=== PATIENT | female | born 1930 | race Caucasian/White ===

== ENCOUNTER 2016-06-08 17:39 | Emergency (ER) | payer MEDICARE, BC ==
[2016-06-08 18:18] VITALS: BP 175/101
[2016-06-08] MEDS ORDERED: traMADol 50 MG Tab PO ONE (18:41)
[2016-06-08] MEDS ORDERED: Sodium Chloride 0.9% 10 ML Syringe FLUSH PRN (18:41)
--- NOTE | 2016-06-08 18:42 | EDM.PDOC ---
ED UPPER BACK/NECK PAIN/INJURY - General Chief Complaint: Neck Problem Stated Complaint: NECK PAIN Time Seen by Provider: 06/08/16 18:20 Source of Information: Reports: Patient History Limitations: Reports: No limitations - History of Present Illness INITIAL COMMENTS - FREE TEXT/NARRATIVE: 86 year old female presents for evaluation treatment of left sided shoulder and neck pain. She says the pain has been going on for about one week. She states that last week she was lifting some laundry. She still felt a small "twinge" in her left proximal arm but states this was not severe. She states that over the course of the following days the pain worsened. Pain is currently located in the shoulder radiates up into her left neck. She is also experiencing some pain in her left ear. She denies any chest pain, shortness of breath, diaphoresis, nausea, vomiting, muscle atrophy, numbness or tingling. He has been to the chiropractor and has been utilizing ice, heat and Tylenol without much symptom relief. patient did have an echocardiogram done on Thursday of this week. She has no history of MIs or cardiac arrhythmias. - Related Data Allergies/ADRs: Allergies Allergy/AdvReac Type Severity Reaction Status Date / Time No Known Allergies Allergy Verified 06/08/16 17:57 Home Meds: Home Meds . [Unable to Verify Home Med List] 06/08/16 [History] Past Medical History Cardiovascular History: Reports: High cholesterol, Hypertension Neurological History: Reports: MS Social & Family History - Tobacco Use Smoking Status *Q: Never Smoker ED ROS GENERAL - Review of Systems Review Of Systems: See Below Constitutional: Denies: diaphoresis HEENT: Reports: Ear pain (left) Respiratory: Denies: Shortness of Breath Cardiovascular: Denies: Chest pain GI/Abdominal: Denies: Abdominal pain, Nausea Musculoskeletal: Reports: neck pain (left sided), shoulder pain (left) ED EXAM, UPPER BACK/NECK PAIN - Physical Exam Exam: See Below Exam Limited By: No limitations General Appearance: alert, WD/WN, no apparent distress Ears Exam: normal external exam, normal canal, hearing grossly normal, normal TMs Nose Exam: normal inspection Throat/Mouth Exam: Normal inspection, Normal lips, Normal voice, No airway compromise Neck Exam: normal alignment, normal inspection, painful range of motion (able to flex, extend and rotate to the right without pain; reports pain with rotation to the left and decreased ROM with rotation to the left). 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 Left anterior fasicular block. 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 Reviewed by myself and Dr. Mejias. Course - Vital Signs Last Recorded V/S: Last Vital Signs Temp 36.4 C 06/08/16 17:57 Pulse 81 06/08/16 17:57 Resp 18 06/08/16 17:57 BP 175/101 H 06/08/16 17:57 Pulse Ox 96 06/08/16 17:57 - Orders/Labs/Meds Labs: Laboratory Tests 06/08/16 06/08/16 Range/Units 19:21 19:21 WBC 6.29 (3.98-10.04) K/mm3 RBC 5.08 (3.98-5.22) M/mm3 Hgb 15.3 (11.2-15.7) gm/L Hct 46.7 H (34.1-44.9) % MCV 91.9 (79.4-94.8) fl MCH 30.1 (25.6-32.2) pg MCHC 32.8 (32.2-35.5) g/dl RDW Std Deviation 48.1 H (36.4-46.3) fL Plt Count 150 L (182-369) K/mm3 MPV 12.1 (9.4-12.3) fl Neut % (Auto) 51.8 (34.0-71.1) % Lymph % (Auto) 35.6 (19.3-51.7) % [place] % (Auto) 9.9 (4.7-12.5) % Eos % (Auto) 2.1 (0.7-5.8) Baso % (Auto) 0.6 (0.1-1.2) % Neut # (Auto) 3.26 (1.56-6.13) K/mm3 Lymph # (Auto) 2.24 (1.18-3.74) K/mm3 [place] # (Auto) 0.62 H (0.24-0.36) K/mm3 Eos # (Auto) 0.13 (0.04-0.36) K/mm3 Baso # (Auto) 0.04 (0.01-0.08) K/mm3 Sodium 140 (136-145) mEq/L Potassium 4.2 (3.5-5.1) mEq/L Chloride 104 (98-107) mEq/L Carbon Dioxide 28 (21-32) mEq/L Anion Gap 12.2 (5-15) BUN 25 H (7-18) mg/dL Creatinine 1.0 (0.55-1.02) mg/dL Est Cr Clr Drug Dosing 36.34 mL/min Estimated GFR (MDRD) 53 (>60) mL/min BUN/Creatinine Ratio 25.0 H (14-18) Glucose 109 (83-115) mg/dL Calcium 8.9 (8.5-10.1) mg/dL Total Bilirubin 0.3 (0.2-1.0) mg/dL AST 38 H (15-37) U/L ALT 40 (14-59) U/L Alkaline Phosphatase 55 (46-116) U/L CK-MB (CK-2) 1.3 (0-3.6) ng/ml Troponin I < 0.017 (0.00-0.056) ng/mL Total Protein 7.4 (6.4-8.2) g/dl Albumin 4.0 (3.4-5.0) g/dl Globulin 3.4 gm/dL Albumin/Globulin Ratio 1.2 (1-2) Meds: Medications Discontinued Medications Generic Name Dose Route Start Last Admin Trade Name Freq PRN Reason Stop Dose Admin Sodium Chloride 10 ml 06/08/16 18:41 Saline Flush FLUSH ASDIRECTED PRN Keep Vein Open Tramadol HCl 50 mg 06/08/16 18:41 06/08/16 19:16 Ultram PO 06/08/16 18:42 50 mg ONETIME ONE Administration - Radiology Interpretation Free Text/Narrative:: chest xray shows no acute intrathoracic process. cervical spine xray shows severe degenerative changes. - Re-Assessments/Exams Free Text/Narrative Re-Assessment/Exam: 06/08/16 20:36 Labs returned. White blood cell count is 6.29, hemoglobin is 13.3 and platelets are 150. Troponin is within normal limits a less than 0.017. CK-MB is within normal limits at 1.3. Sodium is 140, potassium 4.2, chloride is 104. Anion gap is 2.2. Glucose is 109. Creatinine is 1.0. I reviewed the x-ray, lab results and EKG results with the patient. I do feel that her pain is likely coming from her neck. Will prescribe her some tramadol for pain. She tolerated this well in the ER and had good pain relief. follow up with her primary care provider. Discharge instructions as documented Departure - Departure Time of Disposition: 20:36 Disposition: Home, Self-Care 01 Condition: fair Clinical Impression: Cervical radiculopathy Instructions: Cervical Radiculopathy, [id number] Referrals: Marybeth Medina MD [Primary Care Provider] - Forms: ED Department Discharge Additional Instructions: Prescription for tramadol 50 mg tabs one tab every 4-6 hours #30 given from inst[facility]eds. tramadol as needed for severe pain. One tab every 4-6 hours as needed for severe pain. Do not drive or operative machinery within 12 hours of taking the tramadol. Tramadol can be habit-forming, I recommend you take as few of these as needed for pain. use ice or moist heat to the sore areas. Followup with primary care provider within one to 2 weeks. Please return to the ER should your symptoms change or worsen.
--- NOTE | 2016-06-09 07:44 | CR ---
Cervical spine: AP, lateral and odontoid views of the cervical spine were obtained. Comparison: No previous study. Mild scoliosis is seen. Bony structures are osteopenic. Diffuse degenerative change is seen within the uncovertebral joints. Mild posterior disc space narrowing is seen throughout the cervical spine. No abnormal subluxation is seen. Kyphosis is noted within the thoracic spine which causes accentuated lordosis within the cervical spine. Mild scattered endplate osteophytes are seen. Nothing acute is identified. Impression: 1. Mild posterior disc space narrowing throughout the cervical spine with mild diffuse degenerative apophyseal change. 2. Other findings as noted above. Nothing acute is identified. Diagnostic code #2
--- NOTE | 2016-06-09 07:44 | CR ---
Chest: Frontal view of the chest was obtained. Comparison: No previous chest imaging. Heart size is normal. Tortuous thoracic aorta is noted. Lungs are clear with no acute infiltrates. Slight density within the right upper lung believed to represent costochondral calcification within the first rib. Joint space narrowing and mild inferior spurring is seen within the right acromioclavicular joint. Mild scoliosis is noted within the spine with mild degenerative endplate osteophytes. Impression: 1. Incidental findings. Nothing acute is identified on frontal chest x-ray. Diagnostic code #2
== END 2016-06-08 20:50 | disposition home or self-care (01) ==
LOC: JD.ED 17:39
DX: M54.12 Radiculopathy, cervical region (principal); E78.00 Pure hypercholesterolemia, unspecified; I10 Essential (primary) hypertension
CPT/HCPCS: 36415; 71010; 72040; 80053; 82553; 84484; 85025; 93005; 99284; A9270; 99283

== ENCOUNTER 2016-07-02 07:19 | Inpatient (IN) | payer MEDICARE, BC ==
--- NOTE | 2016-07-02 08:43 | EDM.PDOC ---
ED HPI GENERAL MEDICAL PROBLEM - General Chief Complaint: Respiratory Problem Stated Complaint: CHEST CONGESTION Time Seen by Provider: 07/02/16 07:51 Source of Information: Reports: Patient, Family (Son), RN Notes Reviewed History Limitations: Reports: No Limitations - History of Present Illness INITIAL COMMENTS - FREE TEXT/NARRATIVE: The patient states that she believes that she has a bad cold. She complains of a cough, sore throat, rhinorrhea, and rib, abdominal, and chest discomfort whenever she coughs, since 06/27/2016. She states that she is wheelchair bound, but that she is able to transfer in and out of the bed, to the toilet, and perform her ADLs, but that since this illness began, she is too weak to do so. No history of fever, however, the patient is found to have a temperature of 102.1 here in the ED. The patient denies recent nausea, vomiting, constipation, diarrhea, or urinary symptoms. She admits that she is incontinent of urine. The patient's PCP is Dr. Marybeth Medina. Dr. Medina has not been notified of this illness. Chest Pain Score (Numeric/FACES): 8 - Related Data Allergies Allergy/AdvReac Type Severity Reaction Status Date / Time No Known Allergies Allergy Verified 06/08/16 17:57 Home Meds: Home Meds Alendronate Sodium [Alendronate] 70 mg PO WEEKLY 07/02/16 [History] Furosemide [Lasix] 20 mg PO DAILY 07/02/16 [History] Lisinopril 10 mg PO DAILY 07/02/16 [History] Simvastatin [Zocor] 20 mg PO DAILY 07/02/16 [History] Past Medical History Cardiovascular History: Reports: High Cholesterol, Hypertension Gastrointestinal History: Reports: PUD Genitourinary History: Reports: Urinary Incontinence Neurological History: Reports: MS - Past Surgical History HEENT Surgical History: Reports: Cataract Surgery GI Surgical History: Reports: Appendectomy Social & Family History - Tobacco Use Smoking Status *Q: Never Smoker - Alcohol Use Alcohol Use History: Yes Alcohol Use Frequency: Rarely - Recreational Drug Use Recreational Drug Use: No - Living Situation & Occupation Living situation: Reports: , with Family (Son) Occupation: Retired ED ROS GENERAL - Review of Systems Review Of Systems: See Below Constitutional: Reports: Weakness HEENT: Reports: No Symptoms, Rhinitis Respiratory: Reports: Cough Cardiovascular: Reports: No Symptoms Endocrine: Reports: No Symptoms GI/Abdominal: Reports: No Symptoms : Reports: No Symptoms Musculoskeletal: Reports: No Symptoms Skin: Reports: No Symptoms Neurological: Reports: No Symptoms Psychiatric: Reports: No Symptoms Hematologic/Lymphatic: Reports: No Symptoms Immunologic: Reports: No Symptoms ED EXAM, GENERAL - Physical Exam Exam: See Below Exam Limited By: No Limitations General Appearance: Alert, WD/WN, No Apparent Distress Eye Exam: Bilateral Eye: Normal Inspection Ears: Normal External Exam, Normal Canal, Hearing Grossly Normal, Normal TMs Ear Exam: Bilateral Ear: Auricle Normal, Canal Normal, TM normal Nose: Normal Inspection, Normal Mucosa, No Blood Throat/Mouth: Normal Inspection, Normal Lips, Normal Teeth, Normal Gums, Normal Oropharynx (Moist oral mucosa), Normal Voice, No Airway Compromise Head: Atraumatic, Normocephalic Neck: Normal Inspection, Supple, Non-Tender, Full Range of Motion. No: Lymphadenopathy (L), Lymphadenopathy (R) Respiratory/Chest: No Respiratory Distress, Lungs Clear, Normal Breath Sounds, No Accessory Muscle Use, Chest Non-Tender Cardiovascular: Normal Peripheral Pulses, Regular Rate, Rhythm, No Gallop, No JVD, No Murmur, No Rub Peripheral Pulses: 4+: Radial (L), Radial (R) GI/Abdominal: Normal Bowel Sounds, Soft, Non-Tender, No Organomegaly, No Distention, No Abnormal Bruit, No Mass (Female) Exam: Deferred Rectal (Female) Exam: Deferred Back Exam: Normal Inspection, Full Range of Motion, NT Extremities: Normal Inspection, Normal Range of Motion, No Pedal Edema, Normal Capillary Refill Neurological: Alert, Oriented, Normal Cognition, No Motor/Sensory Deficits Psychiatric: Normal Affect Skin Exam: Warm, Dry, Intact, Normal Color, No Rash Lymphatic: No Adenopathy EKG INTERPRETATION EKG Date: 07/02/16 Time: 08:21 Rhythm: NSR Rate (beats/min): 90 [place]: LAD-left axis deviation P-wave: present QRS: other (+ [id number]) ST-T: depressed (lateral leads, likely due to strain) QT: normal Comparison: no change (06/08/2016) Course - Vital Signs Last Recorded V/S: Last Vital Signs Temp 38.9 C H 07/02/16 07:42 Pulse 94 07/02/16 07:42 Resp 18 07/02/16 07:42 BP 161/81 H 07/02/16 07:42 Pulse Ox 92 L 07/02/16 07:42 - Orders/Labs/Meds Orders: Active Orders 24 hr Category Date Time Status EKG Documentation Completion [RC] STAT Care 07/02/16 08:06 Active Chest 1V Frontal [CR] Stat Exams 07/02/16 08:05 Taken CULTURE BLOOD [BC] Stat Lab 07/02/16 07:55 Received CULTURE BLOOD [BC] Stat Lab 07/02/16 08:56 Received CULTURE STREP A CONFIRMATION [RM] Stat Lab 07/02/16 08:02 Results STREP SCRN A RAPID W CULT CONF [RM] Stat Lab 07/02/16 08:02 Results Labs: Laboratory Tests 07/02/16 07/02/16 07/02/16 Range/Units 07:55 07:55 07:55 WBC 9.22 (3.98-10.04) K/mm3 RBC 4.96 (3.98-5.22) M/mm3 Hgb 14.8 (11.2-15.7) gm/L Hct 45.9 H (34.1-44.9) % MCV 92.5 (79.4-94.8) fl MCH 29.8 (25.6-32.2) pg MCHC 32.2 (32.2-35.5) g/dl RDW Std Deviation 48.9 H (36.4-46.3) fL Plt Count 125 L (182-369) K/mm3 MPV 12.2 (9.4-12.3) fl Neutrophils % (Manual) 87 H (40-60) % Band Neutrophils % 1 (0-10) % Lymphocytes % (Manual) 9 L (20-40) % Atypical Lymphs % 0 % Monocytes % (Manual) 2 (2-10) % Eosinophils % (Manual) 0 L (0.7-5.8) % Basophils % (Manual) 1 (0.1-1.2) Platelet Estimate Decreased RBC Morph Comment Normal D-Dimer, Quantitative 0.88 H (0.19-0.59) mg/L Puncture Site ABG pH (7.35-7.45) ABG pCO2 (35.0-45.0) mmHg ABG pO2 (80.0-100.0) mmHg ABG HCO3 (22.0-26.0) meq/L ABG O2 Saturation (96.0-97.0) % ABG Base Excess (-2-2.0) Mohsen Test A-a Gradient mmHg O2 Delivery Device FiO2 (21.00-100.00) % Sodium 140 (136-145) mEq/L Potassium 3.7 (3.5-5.1) mEq/L Chloride 103 (98-107) mEq/L Carbon Dioxide 27 (21-32) mEq/L Anion Gap 13.7 (5-15) BUN 12 (7-18) mg/dL Creatinine 0.9 (0.55-1.02) mg/dL Est Cr Clr Drug Dosing 38.75 mL/min Estimated GFR (MDRD) 59 (>60) mL/min BUN/Creatinine Ratio 13.3 L (14-18) Glucose 179 H (83-115) mg/dL Lactic Acid (0.4-2.0) mmol/L Calcium 8.8 (8.5-10.1) mg/dL Total Bilirubin 0.4 (0.2-1.0) mg/dL AST 28 (15-37) U/L ALT 29 (14-59) U/L Alkaline Phosphatase 61 (46-116) U/L Troponin I 0.022 (0.00-0.056) ng/mL C-Reactive Protein 3.4 H* (<1.0) mg/dL B-Natriuretic Peptide (0-100) pg/mL Total Protein 7.5 (6.4-8.2) g/dl Albumin 3.7 (3.4-5.0) g/dl Globulin 3.8 gm/dL Albumin/Globulin Ratio 1.0 (1-2) Lipase 75 (73-393) U/L TSH 3rd Generation 0.482 (0.358-3.74) uIU/mL Urine Color (Yellow) Urine Appearance (Clear) Urine pH (5.0-8.0) Ur Specific [place] (1.005-1.030) Urine Protein (Negative) Urine Glucose (UA) (Negative) Urine Ketones (Negative) Urine Occult Blood (Negative) Urine Nitrite (Negative) Urine Bilirubin (Negative) Urine Urobilinogen (0.2-1.0) Ur Leukocyte Esterase (Negative) Urine RBC (0-5) /hpf Urine WBC (0-5) /hpf Ur Epithelial Cells (0-5) /hpf Amorphous Sediment (NOT SEEN) /hpf Urine Bacteria (FEW) /hpf Urine Mucus (FEW) /hpf 07/02/16 07/02/16 07/02/16 Range/Units 07:55 08:06 08:15 WBC (3.98-10.04) K/mm3 RBC (3.98-5.22) M/mm3 Hgb (11.2-15.7) gm/L Hct (34.1-44.9) % MCV (79.4-94.8) fl MCH (25.6-32.2) pg MCHC (32.2-35.5) g/dl RDW Std Deviation (36.4-46.3) fL Plt Count (182-369) K/mm3 MPV (9.4-12.3) fl Neutrophils % (Manual) (40-60) % Band Neutrophils % (0-10) % Lymphocytes % (Manual) (20-40) % Atypical Lymphs % % Monocytes % (Manual) (2-10) % Eosinophils % (Manual) (0.7-5.8) % Basophils % (Manual) (0.1-1.2) Platelet Estimate RBC Morph Comment D-Dimer, Quantitative (0.19-0.59) mg/L Puncture Site Rt radial ABG pH 7.44 (7.35-7.45) ABG pCO2 36.8 (35.0-45.0) mmHg ABG pO2 52.0 L (80.0-100.0) mmHg ABG HCO3 24.6 (22.0-26.0) meq/L ABG O2 Saturation 88.8 L (96.0-97.0) % ABG Base Excess 1.2 (-2-2.0) Mohsen Test Positive A-a Gradient 36 mmHg O2 Delivery Device Room air FiO2 21.00 (21.00-100.00) % Sodium (136-145) mEq/L Potassium (3.5-5.1) mEq/L Chloride (98-107) mEq/L Carbon Dioxide (21-32) mEq/L Anion Gap (5-15) BUN (7-18) mg/dL Creatinine (0.55-1.02) mg/dL Est Cr Clr Drug Dosing mL/min Estimated GFR (MDRD) (>60) mL/min BUN/Creatinine Ratio (14-18) Glucose (83-115) mg/dL Lactic Acid (0.4-2.0) mmol/L Calcium (8.5-10.1) mg/dL Total Bilirubin (0.2-1.0) mg/dL AST (15-37) U/L ALT (14-59) U/L Alkaline Phosphatase (46-116) U/L Troponin I (0.00-0.056) ng/mL C-Reactive Protein (<1.0) mg/dL B-Natriuretic Peptide 164 H (0-100) pg/mL Total Protein (6.4-8.2) g/dl Albumin (3.4-5.0) g/dl Globulin gm/dL Albumin/Globulin Ratio (1-2) Lipase (73-393) U/L TSH 3rd Generation (0.358-3.74) uIU/mL Urine Color Yellow (Yellow) Urine Appearance Slt cloudy H (Clear) Urine pH 7.0 (5.0-8.0) Ur Specific [place] 1.020 (1.005-1.030) Urine Protein 1+ H (Negative) Urine Glucose (UA) Negative (Negative) Urine Ketones 2+ H (Negative) Urine Occult Blood Negative (Negative) Urine Nitrite Negative (Negative) Urine Bilirubin Negative (Negative) Urine Urobilinogen 0.2 (0.2-1.0) Ur Leukocyte Esterase Negative (Negative) Urine RBC 0-5 (0-5) /hpf Urine WBC 0-5 (0-5) /hpf Ur Epithelial Cells 0-5 (0-5) /hpf Amorphous Sediment Many H (NOT SEEN) /hpf Urine Bacteria Not seen (FEW) /hpf Urine Mucus Few (FEW) /hpf 07/02/16 Range/Units 08:56 WBC (3.98-10.04) K/mm3 RBC (3.98-5.22) M/mm3 Hgb (11.2-15.7) gm/L Hct (34.1-44.9) % MCV (79.4-94.8) fl MCH (25.6-32.2) pg MCHC (32.2-35.5) g/dl RDW Std Deviation (36.4-46.3) fL Plt Count (182-369) K/mm3 MPV (9.4-12.3) fl Neutrophils % (Manual) (40-60) % Band Neutrophils % (0-10) % Lymphocytes % (Manual) (20-40) % Atypical Lymphs % % Monocytes % (Manual) (2-10) % Eosinophils % (Manual) (0.7-5.8) % Basophils % (Manual) (0.1-1.2) Platelet Estimate RBC Morph Comment D-Dimer, Quantitative (0.19-0.59) mg/L Puncture Site ABG pH (7.35-7.45) ABG pCO2 (35.0-45.0) mmHg ABG pO2 (80.0-100.0) mmHg ABG HCO3 (22.0-26.0) meq/L ABG O2 Saturation (96.0-97.0) % ABG Base Excess (-2-2.0) Mohsen Test A-a Gradient mmHg O2 Delivery Device FiO2 (21.00-100.00) % Sodium (136-145) mEq/L Potassium (3.5-5.1) mEq/L Chloride (98-107) mEq/L Carbon Dioxide (21-32) mEq/L Anion Gap (5-15) BUN (7-18) mg/dL Creatinine (0.55-1.02) mg/dL Est Cr Clr Drug Dosing mL/min Estimated GFR (MDRD) (>60) mL/min BUN/Creatinine Ratio (14-18) Glucose (83-115) mg/dL Lactic Acid 1.0 (0.4-2.0) mmol/L Calcium (8.5-10.1) mg/dL Total Bilirubin (0.2-1.0) mg/dL AST (15-37) U/L ALT (14-59) U/L Alkaline Phosphatase (46-116) U/L Troponin I (0.00-0.056) ng/mL C-Reactive Protein (<1.0) mg/dL B-Natriuretic Peptide (0-100) pg/mL Total Protein (6.4-8.2) g/dl Albumin (3.4-5.0) g/dl Globulin gm/dL Albumin/Globulin Ratio (1-2) Lipase (73-393) U/L TSH 3rd Generation (0.358-3.74) uIU/mL Urine Color (Yellow) Urine Appearance (Clear) Urine pH (5.0-8.0) Ur Specific [place] (1.005-1.030) Urine Protein (Negative) Urine Glucose (UA) (Negative) Urine Ketones (Negative) Urine Occult Blood (Negative) Urine Nitrite (Negative) Urine Bilirubin (Negative) Urine Urobilinogen (0.2-1.0) Ur Leukocyte Esterase (Negative) Urine RBC (0-5) /hpf Urine WBC (0-5) /hpf Ur Epithelial Cells (0-5) /hpf Amorphous Sediment (NOT SEEN) /hpf Urine Bacteria (FEW) /hpf Urine Mucus (FEW) /hpf - Radiology Interpretation Free Text/Narrative:: Portable chest radiograph does not appear to have any acute findings. Cardiac silhouette is within normal limits. No pulmonary vascular congestion. No pleural effusions. No focal infiltrate. No pneumothorax. There is hyperinflation and bilateral diaphragmatic flattening, consistent with COPD. Tortuous aorta noted. Formal read per the Radiologist pending. - Re-Assessments/Exams Free Text/Narrative Re-Assessment/Exam: 07/02/16 09:45 Test results discussed with the patient and her sons. Today's workup is grossly unremarkable. She does not have an elevated WBC count. Her electrolytes and renal function are normal. She does not have a UTI. There is no sign of pneumonia or CHF. She is oxygenating adequately. Her CRP is mildly elevated at 3.4, consistent with a viral illness. Her d-dimer is mildly elevated at 0.88, normal for a person of her age. Our only finding is of a fever of 102.1. The patient states that she uses a wheelchair at home, but that she is ordinarily strong enough to get in and out of bed, go to the bathroom, and perform her ADLs, but that she is currently too weak to do so. Under the circumstances, I don't believe we can safely send the patient home. 07/02/16 09:[address] Benoit at 09:47. He agrees to admit the patient. Departure - Departure Time of Disposition: 09:50 Disposition: Admitted As Inpatient 66 Condition: fair Clinical Impression: Febrile illness, Generalized weakness - Discharge Information - My Orders Last 24 Hours: My Active Orders 07/02/16 07:55 CULTURE BLOOD [BC] Stat 07/02/16 08:02 CULTURE STREP A CONFIRMATION [RM] Stat STREP SCRN A RAPID W CULT CONF [RM] Stat 07/02/16 08:05 Chest 1V Frontal [CR] Stat 07/02/16 08:06 EKG Documentation Completion [RC] STAT 07/02/16 08:56 CULTURE BLOOD [BC] Stat - Assessment/Plan Last 24 Hours: My Active Orders 07/02/16 07:55 CULTURE BLOOD [BC] Stat 07/02/16 08:02 CULTURE STREP A CONFIRMATION [RM] Stat STREP SCRN A RAPID W CULT CONF [RM] Stat 07/02/16 08:05 Chest 1V Frontal [CR] Stat 07/02/16 08:06 EKG Documentation Completion [RC] STAT 07/02/16 08:56 CULTURE BLOOD [BC] Stat
--- NOTE | 2016-07-02 11:30 | CR ---
Chest: Frontal view of the chest was obtained. Comparison: Previous chest x-ray of 06/08/16. Heart size is normal. Tortuous thoracic aorta is seen. Lungs are clear. Mild scoliosis and degenerative spurring is seen within the spine. Impression: 1. Incidental findings which appear stable from prior chest x-ray. 2. Nothing acute is identified on frontal chest x-ray. Diagnostic code #2
[2016-07-02] MEDS ORDERED: Promethazine 12.5 MG in Sodium Chloride 0.9% 50 ML IV PRN (11:51)
[2016-07-02] MEDS ORDERED: Acetaminophen 325 MG Tab PO PRN (11:51)
[2016-07-02] MEDS ORDERED: HYDROmorphone 0.5 MG/0.5 ML Syringe IVPUSH PRN (11:51)
[2016-07-02] MEDS ORDERED: Acetaminophen/HYDROcodone 325-5 MG Tab PO PRN (11:51)
[2016-07-02] MEDS ORDERED: Ondansetron 4 MG/2 ML SDV IV PRN (11:51)
[2016-07-02] MEDS ORDERED: LORazepam 2 MG/ML MDV IV PRN (11:51)
--- NOTE | 2016-07-02 11:51 | PCM.HP ---
H&P History of Present Illness - General Date of Service: 07/02/16 Admit Problem/Dx: Generalized Weakness and Febrile Illness Source of Information: Patient, Old Records, Provider, RN Notes Reviewed History Limitations: Reports: Physical Impairment - History of Present Illness Initial Comments - Free Text/Narative: This sis an 86 yo elderly white female with past medical hx/o HTN, HLD, PUD, Urinary Incontinence and MS (stable for many years) who comes in with complaints of generalized weakness associated with productive cough, fever and chills that started last Thursday. She reports reduced appetite and generalized muscle and joint aches and pain. This morning she had difficulty getting out of bed according to her son. On presentation to ED, she was found to have a temperature of 38.9 C. Her initial ED work up shows, a CBC remarkable for Hct 45.9, Platelet 125 and Neutrophils of 87%. Her D-Dimer is 0.88. Her chemistry is remarkable for BS 179 and BNP 164. Her LA is 1, Troponin x 1 is negative, Lipase is 75 and TSH is 0.482. Her UA is negative for UTI. Her CRX shows no acute abnormal findings. Her EKG shows NSR, Q wave in V1-V3 and ST depression in I, aVL. Her ABG shows PO2 of 52 with 88.8% O2 sat on RA. Patient being admitted for Generalized Weakness, Febrile Illness, Bronchitis and Hypoxemia. She is DNR/DNI. Chest Pain Score (Numeric/FACES): 8 - Related Data Allergies/Adverse Reactions: Allergies Allergy/AdvReac Type Severity Reaction Status Date / Time No Known Allergies Allergy Verified 06/08/16 17:57 Home Medications: Home Meds Alendronate Sodium [Alendronate] 70 mg PO WEEKLY 07/02/16 [History] Furosemide [Lasix] 20 mg PO DAILY 07/02/16 [History] Lisinopril 10 mg PO DAILY 07/02/16 [History] Simvastatin [Zocor] 20 mg PO DAILY 07/02/16 [History] Past Medical History Cardiovascular History: Reports: High Cholesterol, Hypertension Gastrointestinal History: Reports: PUD Genitourinary History: Reports: Urinary Incontinence Musculoskeletal History: Reports: Other (See Below) Other Musculoskeletal History: MS Neurological History: Reports: MS - Infectious Disease History Infectious Disease History: Reports: None - Past Surgical History HEENT Surgical History: Reports: Cataract Surgery GI Surgical History: Reports: Appendectomy Social & Family History - Family History Family Medical History: Noncontributory - Tobacco Use Smoking Status *Q: Never Smoker Used Tobacco, but Quit: Yes Month Tobacco Last Used: 500 Second Hand Smoke Exposure: No - Caffeine Use Caffeine Use: Reports: Tea Caffeine Use Comment: 6 oz of tea at noon - Recreational Drug Use Recreational Drug Use: No - Living Situation & Occupation Living situation: Reports: , with Family (Son) Occupation: Retired H&P Review of Systems - Review of Systems: Review Of Systems: See Below General: Reports: Fever, Chills, Malaise, Weakness, Decreased Appetite HEENT: Reports: No Symptoms Pulmonary: Reports: Cough, Sputum. Denies: Shortness of Breath Cardiovascular: Denies: Chest Pain, Palpitations, Dyspnea on Exertion, Edema, Lightheadedness Gastrointestinal: Reports: Decreased Appetite. Denies: Abdominal Pain, Nausea, Vomiting Genitourinary: Reports: No Symptoms Musculoskeletal: Reports: No Symptoms Skin: Denies: Pruritis, Rash, Erythema Psychiatric: Denies: Confusion, Depression, Anxiety, Agitation, Hallucinations Neurological: Reports: Difficulty Walking, Weakness, Gait Disturbance. Denies: Confusion Hematologic/Lymphatic: Reports: No Symptoms Immunologic: Reports: No Symptoms Exam - Exam Exam: See Below - Vital Signs Vital Signs: Last Vital Signs Temp 38.9 C H 07/02/16 07:42 Pulse 94 07/02/16 07:42 Resp 18 07/02/16 07:42 BP 161/81 H 07/02/16 07:42 Pulse Ox 92 L 07/02/16 07:42 Weight: 74.48 kg - Exam General: Alert, Oriented, Cooperative. No: Mild Distress HEENT: Conjunctiva Clear, EACs Clear, EOMI, Hearing Intact, Mucosa Moist & [place] , Nares Patent, Normal Nasal Septum, Posterior Pharynx Clear, Pupils Equal, Pupils Reactive Neck: Supple, Trachea Midline, +2 Carotid Pulse wo Bruit Lungs: Clear to Auscultation, Normal Respiratory Effort, Decreased Breath Sounds Cardiovascular: Regular Rate, Regular Rhythm Abdomen: Normal Bowel Sounds, Soft, Pelvis Stable. No: Organomegaly, Tenderness (Female) Exam: Deferred Rectal (Female) Exam: Deferred Back Exam: Normal Inspection, Decreased Range of Motion Extremities: Normal Inspection Skin: Warm, Dry, Intact Neuro Extensive - Mental Status: Oriented x3, Normal Cognition, Memory Intact Neuro Extensive - Motor, Sensory, Reflexes: CN II-XII Intact (She has baseline paresthesia. Exam was limited.), Abnormal Gait, Other (She was too weak . She is unable to lift either leg.) Psychiatric: Alert, Normal Affect, Normal Mood - Patient Data Result Diagrams: 07/02/16 07:55 07/02/16 07:55 *Q Meaningful Use (ADM) - VTE *Q VTE Criteria *Q: - Stroke *Q Stroke Criteria *Q: - AMI *Q AMI Criteria *Q: Problem List Initiated/Reviewed/Updated: Yes Assessment/Plan Comment:: Assessment/Plan: Acute: Febrile Illness - Likely 2/2 Bronchitis (Possible Viral) - CRP 3.4 - Supportive Care - PRN Tylenol for Fever Acute Bronchitis - Productive Cough - She does not spit out her phlegm or sputum - She swallows it - Decongestant/Expectorant - IS/FV as directed - Sputum Cx Hypoxemia - 88% on RA presentation to ED - Supplemental O2 - Likely 2/2 Bronchitis - Expect to get better with improving cough Generalized Weakness - 2/2 to Above - TSH is normal; pending FT4 - Vit D level Chronic: HTN HLD PUD Urinary Incontinence MS Plan: Admit to the floor Routine AM Labs Resume Home Meds MVI and Thiamine PT/OT/RT consult SW/CM for d/c planning Code status: DNR/DNI Possible SNF/Rehab Placement due to generalized weakness in setting of underlying MS. She is also for the most part wheel chair bound.
[2016-07-02] MEDS ORDERED: Docusate Sodium 100 MG Cap PO PRN (11:52)
[2016-07-02] MEDS ORDERED: Bisacodyl 5 MG Tab PO PRN (11:52)
[2016-07-02] MEDS ORDERED: Albuterol 0.083% 2.5 MG/3 ML Neb Soln NEB PRN (11:52)
[2016-07-02] MEDS ORDERED: Polyethylene Glycol 3350 Powder 17 GM Packet PO PRN (11:52)
[2016-07-02] MEDS ORDERED: Sodium Chloride 0.9% 1,000 ML IV SCH (12:00)
[2016-07-02] MEDS ORDERED: Metoprolol Tartrate 5 MG/5 ML SDV IVPUSH PRN (12:27)
[2016-07-02] MEDS: Furosemide 20 MG Tab PO SCH ×2 (13:27→13:36)
[2016-07-02] MEDS: Lisinopril 10 MG Tab PO SCH ×2 (13:27→13:35)
[2016-07-02] MEDS: Simvastatin 20 MG Tab PO SCH ×2 (13:28→13:36)
[2016-07-02] MEDS: Bumetanide 1 MG/4 ML MDV IVPUSH ONE ×2 (13:28→13:36)
[2016-07-02] MEDS ORDERED: Acetaminophen 325 MG Tab PO ONE (20:42)
[2016-07-02] MEDS ORDERED: Temazepam 7.5 MG Cap PO PRN (21:00)
[2016-07-02] MEDS: Multivitamins,Therapeutic Tab PO SCH (21:05)
[2016-07-02] MEDS: Thiamine 100 MG Tab PO SCH (21:05)
[2016-07-02] MEDS: guaiFENesin 600 MG Tab.ER PO SCH (21:06)
[2016-07-03] MEDS: Azithromycin 500 MG in Sodium Chloride 0.9% 250 ML IV SCH (08:17)
[2016-07-03] MEDS: guaiFENesin 600 MG Tab.ER PO SCH ×2 (08:18→20:21)
[2016-07-03] MEDS: Potassium Chloride 20 MEQ Tab.ER PO SCH ×2 (08:18→12:06)
[2016-07-03] MEDS: Lisinopril 10 MG Tab PO SCH (08:19)
[2016-07-03] MEDS: Furosemide 20 MG Tab PO SCH (08:19)
[2016-07-03] MEDS: Simvastatin 20 MG Tab PO SCH (08:19)
[2016-07-03] MEDS ORDERED: Magnesium Oxide 400 MG Tab PO ONE (08:30)
[2016-07-03] MEDS: Albuterol/Ipratropium 3.0-0.5 MG/3 ML Neb Soln NEB SCH ×3 (08:44→20:05)
--- NOTE | 2016-07-03 09:11 | PCM.PN ---
- General Info Date of Service: 07/03/16 Admission Dx/Problem (Free Text): Fever, weakness, cough, SOB Gertrude Gallegos is a pleasant 86yo female seen this morning. She reports slept well. Continues to cough, unable to bring anything up. Denies feeling SOB now, no CP. She does feel wheezing. She was febrile overnight. Appetite is returning, was able to eat a cheeseburger last night and "tasted so good", otherwise really hadn't eaten much at all for 2-3 days. States symptoms of coughing started 3 days ago. Functional Status: Reports: pain controlled, tolerating diet, ambulating, urinating. Denies: new symptoms - Review of Systems General: Reports: Fever, Weakness, Fatigue, Malaise, Appetite (improving). Denies: Chills HEENT: Reports: no symptoms Pulmonary: Reports: cough, wheezing. Denies: shortness of breath, pleuritic chest pain Cardiovascular: Reports: Edema (chronic LE edema). Denies: Chest Pain, Palpitations, Dyspnea on Exertion, Lightheadedness Gastrointestinal: Reports: No symptoms. Denies: Abdominal pain, Nausea Genitourinary: Reports: no symptoms Musculoskeletal: Reports: other (chronic weakness d/t MS) Skin: Reports: no symptoms Neurological: Reports: No Symptoms Psychiatric: Reports: no symptoms - Patient Data Vitals - most recent: Last Vital Signs Temp 97.5 F 07/03/16 02:02 Pulse 83 07/03/16 02:02 Resp 17 07/03/16 02:02 BP 119/71 07/03/16 08:19 Pulse Ox 93 L 07/03/16 08:44 Weight - most recent: 165 lb I&O - last 24 hours: Intake & Output 07/02/16 07/03/16 07/03/16 22:59 06:59 14:59 Intake Total 465 554 Balance 465 554 Lab Results last 24 hrs: Laboratory Results - last 24 hr 07/03/16 07/03/16 07/03/16 Range/Units 05:42 05:42 05:42 WBC 6.66 (3.98-10.04) K/mm3 RBC 4.65 (3.98-5.22) M/mm3 Hgb 14.1 (11.2-15.7) gm/L Hct 43.1 (34.1-44.9) % MCV 92.7 (79.4-94.8) fl MCH 30.3 (25.6-32.2) pg MCHC 32.7 (32.2-35.5) g/dl RDW Std Deviation 49.7 H (36.4-46.3) fL Plt Count 116 L (182-369) K/mm3 MPV 12.4 H (9.4-12.3) fl Neut % (Auto) 60.1 (34.0-71.1) % Lymph % (Auto) 25.7 (19.3-51.7) % [place] % (Auto) 13.2 H (4.7-12.5) % Eos % (Auto) 0.2 L (0.7-5.8) Baso % (Auto) 0.5 (0.1-1.2) % Neut # (Auto) 4.01 (1.56-6.13) K/mm3 Lymph # (Auto) 1.71 (1.18-3.74) K/mm3 [place] # (Auto) 0.88 H (0.24-0.36) K/mm3 Eos # (Auto) 0.01 L (0.04-0.36) K/mm3 Baso # (Auto) 0.03 (0.01-0.08) K/mm3 Sodium 141 (136-145) mEq/L Potassium 3.4 L (3.5-5.1) mEq/L Chloride 106 (98-107) mEq/L Carbon Dioxide 28 (21-32) mEq/L Anion Gap 10.4 (5-15) BUN 16 (7-18) mg/dL Creatinine 1.0 (0.55-1.02) mg/dL Est Cr Clr Drug Dosing 34.87 mL/min Estimated GFR (MDRD) 53 (>60) mL/min BUN/Creatinine Ratio 16.0 (14-18) Glucose 124 H (83-115) mg/dL Calcium 7.9 L (8.5-10.1) mg/dL Magnesium 1.8 (1.8-2.4) mg/dl C-Reactive Protein 11.8 H* (<1.0) mg/dL Free T4 1.11 (0.76-1.46) ng/dL Mycoplasma pneumon IgM Negative (NEGATIVE) Med Orders - Current: Current Medications Acetaminophen (Tylenol) 650 mg PO Q4H PRN PRN Reason: Pain (Mild 1-3)/fever Last Admin: 07/02/16 17:43 Dose: 650 mg Hydrocodone Bitart/Acetaminophen ([place] 325-5 Mg) 1 tab PO Q4H PRN PRN Reason: Pain (moderate 4-6) Albuterol (Proventil Neb Soln) 2.5 mg NEB Q2H PRN PRN Reason: Shortness Of Breath/wheezing Albuterol/Ipratropium (Duoneb 3.0-0.5 Mg/3 Ml) 3 ml NEB Q6HRRT [facility] Last Admin: 07/03/16 08:44 Dose: 3 ml Bisacodyl (Dulcolax) 5 mg PO DAILY PRN PRN Reason: Constipation Docusate Sodium (Colace) 100 mg PO BID PRN PRN Reason: Constipation Furosemide (Lasix) 20 mg PO DAILY [facility] Last Admin: 07/03/16 08:19 Dose: 20 mg Guaifenesin (Mucinex) 1,200 mg PO BID [facility] Last Admin: 07/03/16 08:18 Dose: 1,200 mg Hydralazine HCl (Apresoline) 10 mg IVPUSH Q4H PRN PRN Reason: Hypertension Hydromorphone HCl (Dilaudid) 0.25 mg IVPUSH Q2H PRN PRN Reason: Pain (severe 7-10) Promethazine HCl 12.5 mg/ (Sodium Chloride) 50.5 mls @ 100 mls/hr IV Q6H PRN PRN Reason: Nausea/Vomiting Sodium Chloride (Normal Saline) 1,000 mls @ 75 mls/hr IV ASDIRECTED [facility] Last Admin: 07/02/16 13:28 Dose: 75 mls/hr Azithromycin 500 mg/ Sodium (Chloride) 250 mls @ 250 mls/hr IV Q24H [facility] Last Admin: 07/03/16 08:17 Dose: 250 mls/hr Lisinopril (Prinivil) 10 mg PO DAILY [facility] Last Admin: 07/03/16 08:19 Dose: 10 mg Lorazepam (Ativan) 0.25 mg IV Q6H PRN PRN Reason: Anxiety Magnesium Sulfate (Pharmacy To Dose - Magnesium Replacement) 0 dose .XX ASDIRECTED PRN PRN Reason: RX TO MONITOR MAG LEVELS Metoprolol Tartrate (Lopressor) 5 mg IVPUSH Q4H PRN PRN Reason: Tachycardia Multivitamins (Thera) 1 each PO BEDTIME [facility] Last Admin: 07/02/16 21:05 Dose: 1 each Ondansetron HCl (Zofran) 4 mg IV Q6H PRN PRN Reason: Nausea/Vomiting Alendronate Sodium (70 Mg) 0 each PO Mo@0600 [facility] Polyethylene Glycol (Miralax) 17 gm PO DAILY PRN PRN Reason: Constipation Potassium Chloride (Pharmacy To Dose - Potassium Replacement) 0 dose .XX ASDIRECTED PRN PRN Reason: RX TO MONITOR K LEVELS Potassium Chloride (Klor-Con M20) 40 meq PO Q4H [facility] Stop: 07/03/16 12:31 Last Admin: 07/03/16 08:18 Dose: 40 meq Senna/Docusate Sodium (Senna Plus) 1 tab PO BID PRN PRN Reason: Constipation Simvastatin (Zocor) 20 mg PO DAILY [facility] Last Admin: 07/03/16 08:19 Dose: 20 mg Temazepam (Restoril) 7.5 mg PO BEDTIME PRN PRN Reason: Sleep Thiamine HCl (Vitamin B-1) 100 mg PO BEDTIME [facility] Last Admin: 07/02/16 21:05 Dose: 100 mg Discontinued Medications Acetaminophen (Tylenol) 650 mg PO NOW ONE Stop: 07/02/16 20:43 Last Admin: 07/02/16 21:06 Dose: 650 mg Bumetanide (Bumex) 1 mg IVPUSH ONETIME ONE Stop: 07/02/16 12:30 Last Admin: 07/02/16 13:36 Dose: 1 mg Magnesium Oxide (Magnesium Oxide) 400 mg PO ONETIME ONE Stop: 07/03/16 08:31 Last Admin: 07/03/16 08:19 Dose: 400 mg - Exam Quality Assessment: DVT prophylaxis General: alert, oriented, cooperative, no acute distress HEENT: Pupils equal, Pupils reactive, EOMI, Mucous membr. moist/pink Neck: supple Lungs: Normal respiratory effort, Decreased breath sounds (bases), Rhonchi (mid to bases; worse to rt side), Wheezing (expiratory) Cardiovascular: Regular Rate, Regular Rhythm, No Murmurs Abdomen: bowel sounds present, soft, no tenderness, no distension (Female) Exam: Deferred Back Exam: Normal Inspection Extremities: edema (1+ bilat; teds on bilat) Peripheral Pulses: 1+: Dorsalis Pedis (L), Dorsalis Pedis (R) Skin: warm, dry Neurological: no new focal deficit Psy/Mental Status: alert, normal affect, normal mood - Problem List & Annotations (1) Acute bronchitis SNOMED Code(s): 43270358 Code(s): J20.9 - ACUTE BRONCHITIS, UNSPECIFIED Status: Acute Priority: High Current Visit: Yes Qualifiers: Bronchitis organism: unspecified organism Qualified Code(s): J20.9 - Acute bronchitis, unspecified (2) Febrile illness SNOMED Code(s): 862881860 Code(s): R50.9 - FEVER, UNSPECIFIED Status: Acute Current Visit: Yes (3) Generalized weakness SNOMED Code(s): 84442847 Code(s): R53.1 - WEAKNESS Status: Acute Priority: High Current Visit: Yes (4) Multiple sclerosis SNOMED Code(s): 50758507 Code(s): G35 - MULTIPLE SCLEROSIS Status: Chronic Priority: Medium Current Visit: No - Problem List Review Problem List Initiated/Reviewed/Updated: Yes - My Orders Last 24 Hours: My Active Orders 07/03/16 07:03 RT Aerosol Therapy [RC] ASDIRECTED 07/03/16 07:30 Azithromycin [Zithromax] 500 mg Sodium Chloride 0.9% [Normal Saline] 250 ml IV Q24H 07/03/16 08:30 RESPIRATORY PANEL BY PCR [MREF] Routine STREP PNEUMONIAE ANTIGEN [MREF] Routine 07/03/16 09:00 Albuterol/Ipratropium [DuoNeb 3.0-0.5 MG/3 ML] 3 ml NEB Q6HRRT - Plan Plan:: Assessment/Plan: Acute: Febrile Illness-- Acute bronchitis - Likely 2/2 Bronchitis (Possible Viral)--coughing, fever, SOB x 2-3 days - CRP 3.4--> up to 11 today - Mycoplasma, S. Pneumo and Resp viral panel ordered this morning, sputum cx - Zithromax for inflammatory coverage - RT for IS/Flutter valve and nebs - Mucinex BID - PRN Tylenol for Fever Hypoxemia - 88% on RA presentation to ED - Supplemental O2 - Likely 2/2 Bronchitis - Expect to get better with improving cough Generalized Weakness - 2/2 to Above - TSH and FTR normal - Vit D level WNL - Chronic MS with acute resp illness contributory Chronic: HTN- stable; cont home meds HLD PUD- GI prophylax Urinary Incontinence MS Plan: Admit to the floor Routine AM Labs Resume Home Meds MVI and Thiamine DVT/GI prophylax PT/OT/RT consult SW/CM for d/c planning Code status: DNR/DNI Possible SNF/Rehab Placement due to generalized weakness in setting of underlying MS. She is also for the most part wheel chair bound.
[2016-07-03] MEDS ORDERED: Pneumococcal 13-Valent Conjugate Vaccine 0.5 ML Syringe IM ONE (09:18)
[2016-07-03] MEDS ORDERED: Diphtheria,Pertussis(Acell),Tetanus Vaccine 0.5 ML SDV inactive IM ONE (09:18)
[2016-07-03] MEDS ORDERED: Sodium Chloride 0.9% 10 ML Syringe FLUSH PRN (17:54)
[2016-07-03] MEDS: Multivitamins,Therapeutic Tab PO SCH (20:21)
[2016-07-03] MEDS: Thiamine 100 MG Tab PO SCH (20:21)
[2016-07-04] MEDS: Albuterol/Ipratropium 3.0-0.5 MG/3 ML Neb Soln NEB SCH ×4 (03:24→20:32)
[2016-07-04] MEDS ORDERED: Magnesium Oxide 400 MG Tab PO ONE (09:00)
[2016-07-04] MEDS: Lisinopril 10 MG Tab PO SCH (09:39)
[2016-07-04] MEDS: guaiFENesin 600 MG Tab.ER PO SCH ×2 (09:39→22:04)
[2016-07-04] MEDS: Simvastatin 20 MG Tab PO SCH (09:39)
[2016-07-04] MEDS: Furosemide 20 MG Tab PO SCH (09:40)
[2016-07-04] MEDS: Azithromycin 500 MG in Sodium Chloride 0.9% 250 ML IV SCH (09:40)
[2016-07-04] MEDS: hydrALAZINE 20 MG/ML SDV IVPUSH PRN (09:43)
--- NOTE | 2016-07-04 11:22 | PCM.PN ---
- General Info Date of Service: 07/04/16 Admission Dx/Problem (Free Text): Fever, weakness, cough, SOB M Subjective Update: Follow Up Functional Status: Reports: pain controlled, tolerating diet, urinating. Denies : ambulating, new symptoms - Review of Systems General: Reports: Weakness. Denies: Fever, Fatigue, Malaise, Chills HEENT: Reports: no symptoms Pulmonary: Reports: shortness of breath, cough, sputum Cardiovascular: Denies: Chest Pain, Palpitations, Dyspnea on Exertion Gastrointestinal: Denies: Abdominal pain, Nausea, Vomiting Genitourinary: Reports: no symptoms Musculoskeletal: Reports: no symptoms Neurological: Reports: Difficulty Walking, Weakness, Gait Disturbance. Denies: Confusion Psychiatric: Denies: confusion, mood lability, agitation, hallucinations Systems Review Comment:: No overnight issues. She slept pretty good. She continues to cough but has difficulty with expectoration. - Patient Data Vitals - most recent: Last Vital Signs Temp 37.3 C 07/04/16 09:19 Pulse 78 07/04/16 09:19 Resp 20 07/04/16 09:19 BP 153/85 H 07/04/16 09:39 Pulse Ox 95 07/04/16 09:19 Weight - most recent: 75.16 kg I&O - last 24 hours: Intake & Output 07/03/16 07/04/16 07/04/16 22:59 06:59 14:59 Intake Total 2235 600 0 Output Total 400 400 Balance 1835 200 0 Lab Results last 24 hrs: Laboratory Results - last 24 hr 07/04/16 07/04/16 Range/Units 05:50 05:50 WBC 5.18 (3.98-10.04) K/mm3 RBC 4.34 (3.98-5.22) M/mm3 Hgb 13.0 (11.2-15.7) gm/L Hct 40.2 (34.1-44.9) % MCV 92.6 (79.4-94.8) fl MCH 30.0 (25.6-32.2) pg MCHC 32.3 (32.2-35.5) g/dl RDW Std Deviation 49.6 H (36.4-46.3) fL Plt Count 114 L (182-369) K/mm3 MPV 12.0 (9.4-12.3) fl Neut % (Auto) 43.6 (34.0-71.1) % Lymph % (Auto) 43.8 (19.3-51.7) % [place] % (Auto) 11.0 (4.7-12.5) % Eos % (Auto) 1.0 (0.7-5.8) Baso % (Auto) 0.4 (0.1-1.2) % Neut # (Auto) 2.26 (1.56-6.13) K/mm3 Lymph # (Auto) 2.27 (1.18-3.74) K/mm3 [place] # (Auto) 0.57 H (0.24-0.36) K/mm3 Eos # (Auto) 0.05 (0.04-0.36) K/mm3 Baso # (Auto) 0.02 (0.01-0.08) K/mm3 Manual Slide Review Normal smear Sodium 142 (136-145) mEq/L Potassium 4.1 (3.5-5.1) mEq/L Chloride 109 H (98-107) mEq/L Carbon Dioxide 25 (21-32) mEq/L Anion Gap 12.1 (5-15) BUN 17 (7-18) mg/dL Creatinine 0.7 (0.55-1.02) mg/dL Est Cr Clr Drug Dosing 49.82 mL/min Estimated GFR (MDRD) > 60 (>60) mL/min BUN/Creatinine Ratio 24.3 H (14-18) Glucose 115 (83-115) mg/dL Calcium 7.8 L (8.5-10.1) mg/dL Magnesium 1.8 (1.8-2.4) mg/dl C-Reactive Protein 6.2 H* (<1.0) mg/dL [place] Results last 24 hrs: Microbiology 07/03/16 08:30 Streptococcus pneumoniae Antigen (M - Final Urine 07/03/16 08:30 Respiratory Virus Panel (PCR) (DEXTER) - Final Nasopharyngeal Swab - Nare, Unspecified Med Orders - Current: Current Medications Acetaminophen (Tylenol) 650 mg PO Q4H PRN PRN Reason: Pain (Mild 1-3)/fever Last Admin: 07/02/16 17:43 Dose: 650 mg Hydrocodone Bitart/Acetaminophen ([place] 325-5 Mg) 1 tab PO Q4H PRN PRN Reason: Pain (moderate 4-6) Albuterol (Proventil Neb Soln) 2.5 mg NEB Q2H PRN PRN Reason: Shortness Of Breath/wheezing Albuterol/Ipratropium (Duoneb 3.0-0.5 Mg/3 Ml) 3 ml NEB Q6HRRT [facility] Last Admin: 07/04/16 09:51 Dose: 3 ml Bisacodyl (Dulcolax) 5 mg PO DAILY PRN PRN Reason: Constipation Docusate Sodium (Colace) 100 mg PO BID PRN PRN Reason: Constipation Furosemide (Lasix) 20 mg PO DAILY [facility] Last Admin: 07/04/16 09:40 Dose: 20 mg Guaifenesin (Mucinex) 1,200 mg PO BID [facility] Last Admin: 07/04/16 09:39 Dose: 1,200 mg Hydralazine HCl (Apresoline) 10 mg IVPUSH Q4H PRN PRN Reason: Hypertension Last Admin: 07/04/16 09:43 Dose: 10 mg Hydromorphone HCl (Dilaudid) 0.25 mg IVPUSH Q2H PRN PRN Reason: Pain (severe 7-10) Promethazine HCl 12.5 mg/ (Sodium Chloride) 50.5 mls @ 100 mls/hr IV Q6H PRN PRN Reason: Nausea/Vomiting Azithromycin 500 mg/ Sodium (Chloride) 250 mls @ 250 mls/hr IV Q24H [facility] Last Admin: 07/04/16 09:40 Dose: 250 mls/hr Lisinopril (Prinivil) 10 mg PO DAILY [facility] Last Admin: 07/04/16 09:39 Dose: 10 mg Lorazepam (Ativan) 0.25 mg IV Q6H PRN PRN Reason: Anxiety Magnesium Sulfate (Pharmacy To Dose - Magnesium Replacement) 0 dose .XX ASDIRECTED PRN PRN Reason: RX TO MONITOR MAG LEVELS Metoprolol Tartrate (Lopressor) 5 mg IVPUSH Q4H PRN PRN Reason: Tachycardia Multivitamins (Thera) 1 each PO BEDTIME [facility] Last Admin: 07/03/16 20:21 Dose: 1 each Ondansetron HCl (Zofran) 4 mg IV Q6H PRN PRN Reason: Nausea/Vomiting Alendronate Sodium (70 Mg) 0 each PO Mo@0600 [facility] Polyethylene Glycol (Miralax) 17 gm PO DAILY PRN PRN Reason: Constipation Potassium Chloride (Pharmacy To Dose - Potassium Replacement) 0 dose .XX ASDIRECTED PRN PRN Reason: RX TO MONITOR K LEVELS Senna/Docusate Sodium (Senna Plus) 1 tab PO BID PRN PRN Reason: Constipation Simvastatin (Zocor) 20 mg PO DAILY [facility] Last Admin: 07/04/16 09:39 Dose: 20 mg Sodium Chloride (Saline Flush) 10 ml FLUSH ASDIRECTED PRN PRN Reason: Keep Vein Open Temazepam (Restoril) 7.5 mg PO BEDTIME PRN PRN Reason: Sleep Thiamine HCl (Vitamin B-1) 100 mg PO BEDTIME [facility] Last Admin: 07/03/16 20:21 Dose: 100 mg Discontinued Medications Acetaminophen (Tylenol) 650 mg PO NOW ONE Stop: 07/02/16 20:43 Last Admin: 07/02/16 21:06 Dose: 650 mg Bumetanide (Bumex) 1 mg IVPUSH ONETIME ONE Stop: 07/02/16 12:30 Last Admin: 07/02/16 13:36 Dose: 1 mg Diphtheria/Tetanus/Acell Pertussis (Boostrix) 0.5 ml IM .ONCE ONE Stop: 07/03/16 09:19 Sodium Chloride (Normal Saline) 1,000 mls @ 75 mls/hr IV ASDIRECTED [facility] Last Admin: 07/02/16 13:28 Dose: 75 mls/hr Magnesium Oxide (Magnesium Oxide) 400 mg PO ONETIME ONE Stop: 07/03/16 08:31 Last Admin: 07/03/16 08:19 Dose: 400 mg Magnesium Oxide (Magnesium Oxide) 800 mg PO ONETIME ONE Stop: 07/04/16 09:01 Last Admin: 07/04/16 09:39 Dose: 800 mg Pneumococcal 13-Valent Conj Vacc (Prevnar 13) 0.5 ml IM .ONCE ONE Stop: 07/03/16 09:19 Potassium Chloride (Klor-Con M20) 40 meq PO Q4H [facility] Stop: 07/03/16 12:31 Last Admin: 07/03/16 12:06 Dose: 40 meq - Exam General: alert, oriented, cooperative, no acute distress HEENT: Pupils equal, Pupils reactive, EOMI, Mucous membr. moist/pink Neck: supple, trachea midline, no JVD, no thyromegaly Lungs: Normal respiratory effort, Decreased breath sounds, Rhonchi Cardiovascular: Regular Rate, Regular Rhythm Abdomen: bowel sounds present, soft, no tenderness, no distension (Female) Exam: Deferred Back Exam: Normal Inspection, Decreased Range of Motion Extremities: no edema, normal pulses, no tenderness/swelling, no clubbing, no cyanosis, no calf tenderness, calf tenderness Skin: warm, dry, intact Neurological: no new focal deficit. No: normal gait Psy/Mental Status: alert, normal affect, normal mood - Problem List Review Problem List Initiated/Reviewed/Updated: Yes - My Orders Last 24 Hours: My Active Orders 07/03/16 17:54 Sodium Chloride 0.9% [Saline Flush] 10 ml FLUSH ASDIRECTED PRN Convert IV to Saline Lock [OM.PC] Stat 07/05/16 05:11 BASIC METABOLIC PANEL,BMP [CHEM] AM C-REACTIVE PROTEIN [CHEM] AM CBC WITH AUTO DIFF [HEME] AM MAGNESIUM [CHEM] AM 07/06/16 05:11 BASIC METABOLIC PANEL,BMP [CHEM] AM C-REACTIVE PROTEIN [CHEM] AM CBC WITH AUTO DIFF [HEME] AM MAGNESIUM [CHEM] AM 07/07/16 05:11 BASIC METABOLIC PANEL,BMP [CHEM] AM C-REACTIVE PROTEIN [CHEM] AM MAGNESIUM [CHEM] AM 07/07/16 06:00 Patient's Own Medication [Ptom] 0 each PO Mo@0600 - Plan Plan:: Assessment/Plan: Acute: Febrile Illness-- Acute bronchitis - Likely 2/2 Bronchitis (Possible Viral)--coughing, fever, SOB x 2-3 days - CRP 3.4--> up to 11 today - Mycoplasma, S. Pneumo and Resp Viral Panel: all negative - Zithromax for inflammatory coverage - RT for IS/Flutter valve and nebs - Mucinex BID - PRN Tylenol for Fever Sore Throat - Strep negative - Cepacol PRN for symptomatic control - Encourage to have a little more fluids or something to stimulate wetness in her mouth Generalized Weakness - 2/2 Above - TSH and FTR normal - Vit D level WNL - Chronic MS with acute resp illness contributory Resolved: S/p Hypoxemia - 88% on RA presentation to ED - Supplemental O2 - Likely 2/2 Bronchitis - Expect to get better with improving cough Chronic: HTN- stable; cont home meds HLD PUD- GI prophylax Urinary Incontinence MS Plan: Routine AM Labs Resume Home Meds Continue current treatment DVT/GI prophylax Continue PT/OT/RT Encourage to use [facility] as directed SW/CM for d/c planning Code status: DNR/DNI Possible SNF/Rehab Placement due to generalized weakness in setting of underlying MS. She is also for the most part wheel chair bound. If she gets better, she would like to go home with plan in placed for HHS with Nursing, PT/ OT, [employer] Services and Home Safety Eval. LOS anticipate > 96 hrs due to slow response to treatment and for possible SNF/ Rehab Placement
[2016-07-04] MEDS: Thiamine 100 MG Tab PO SCH (22:04)
[2016-07-04] MEDS: Multivitamins,Therapeutic Tab PO SCH (22:04)
[2016-07-05] MEDS: hydrALAZINE 20 MG/ML SDV IVPUSH PRN (04:34)
--- NOTE | 2016-07-05 07:59 | PCM.PN ---
- General Info Date of Service: 07/05/16 Admission Dx/Problem (Free Text): Fever, weakness, cough, SOB M Subjective Update: Follow Up Functional Status: Reports: pain controlled, tolerating diet, ambulating, urinating. Denies: new symptoms - Review of Systems General: Denies: Fever, Weakness, Malaise, Chills HEENT: Reports: no symptoms Pulmonary: Reports: cough, sputum. Denies: shortness of breath Cardiovascular: Denies: Chest Pain Gastrointestinal: Denies: Abdominal pain, Nausea, Vomiting Genitourinary: Reports: no symptoms Musculoskeletal: Reports: no symptoms Neurological: Reports: Difficulty Walking, Weakness, Gait Disturbance. Denies: Confusion Psychiatric: Denies: depression, anxiety, agitation Systems Review Comment:: Patient is non-compliant by refusing taking her nebs and some pills. She did not sleep well last night. She feels she is getting better. She as finally able to provide us a sputum sample. She still sounded congested. She has no new complaints. - Patient Data Vitals - most recent: Last Vital Signs Temp 37.2 C 07/04/16 20:07 Pulse 54 L 07/04/16 20:07 Resp 17 07/04/16 20:07 BP 138/72 07/04/16 21:30 Pulse Ox 97 07/04/16 20:07 Weight - most recent: 73.437 kg I&O - last 24 hours: Intake & Output 07/04/16 07/05/16 07/05/16 22:59 06:59 14:59 Intake Total 790 500 Output Total 650 Balance 140 500 Lab Results last 24 hrs: Laboratory Results - last 24 hr 07/05/16 07/05/16 Range/Units 06:03 06:03 WBC 7.18 (3.98-10.04) K/mm3 RBC 5.20 (3.98-5.22) M/mm3 Hgb 15.4 (11.2-15.7) gm/L Hct 47.1 H (34.1-44.9) % MCV 90.6 (79.4-94.8) fl MCH 29.6 (25.6-32.2) pg MCHC 32.7 (32.2-35.5) g/dl RDW Std Deviation 48.9 H (36.4-46.3) fL Plt Count 174 L (182-369) K/mm3 MPV 12.1 (9.4-12.3) fl Neut % (Auto) 45.7 (34.0-71.1) % Lymph % (Auto) 42.5 (19.3-51.7) % [place] % (Auto) 8.9 (4.7-12.5) % Eos % (Auto) 2.2 (0.7-5.8) Baso % (Auto) 0.6 (0.1-1.2) % Neut # (Auto) 3.28 (1.56-6.13) K/mm3 Lymph # (Auto) 3.05 (1.18-3.74) K/mm3 [place] # (Auto) 0.64 H (0.24-0.36) K/mm3 Eos # (Auto) 0.16 (0.04-0.36) K/mm3 Baso # (Auto) 0.04 (0.01-0.08) K/mm3 Sodium 143 (136-145) mEq/L Potassium 4.0 (3.5-5.1) mEq/L Chloride 107 (98-107) mEq/L Carbon Dioxide 22 (21-32) mEq/L Anion Gap 18.0 H (5-15) BUN 19 H (7-18) mg/dL Creatinine 0.8 (0.55-1.02) mg/dL Est Cr Clr Drug Dosing 43.59 mL/min Estimated GFR (MDRD) > 60 (>60) mL/min BUN/Creatinine Ratio 23.8 H (14-18) Glucose 133 H (83-115) mg/dL Calcium 9.0 (8.5-10.1) mg/dL Magnesium 2.0 (1.8-2.4) mg/dl C-Reactive Protein 4.5 H* (<1.0) mg/dL Dexter Results last 24 hrs: Microbiology 07/03/16 08:30 Streptococcus pneumoniae Antigen (M - Final Urine 07/03/16 08:30 Respiratory Virus Panel (PCR) (DEXTER) - Final Nasopharyngeal Swab - Nare, Unspecified Med Orders - Current: Current Medications Acetaminophen (Tylenol) 650 mg PO Q4H PRN PRN Reason: Pain (Mild 1-3)/fever Last Admin: 07/02/16 17:43 Dose: 650 mg Hydrocodone Bitart/Acetaminophen ([place] 325-5 Mg) 1 tab PO Q4H PRN PRN Reason: Pain (moderate 4-6) Albuterol (Proventil Neb Soln) 2.5 mg NEB Q2H PRN PRN Reason: Shortness Of Breath/wheezing Albuterol/Ipratropium (Duoneb 3.0-0.5 Mg/3 Ml) 3 ml NEB Q6HRRT [facility] Last Admin: 07/04/16 20:32 Dose: Not Given Bisacodyl (Dulcolax) 5 mg PO DAILY PRN PRN Reason: Constipation Docusate Sodium (Colace) 100 mg PO BID PRN PRN Reason: Constipation Furosemide (Lasix) 20 mg PO DAILY [facility] Last Admin: 07/04/16 09:40 Dose: 20 mg Guaifenesin (Mucinex) 1,200 mg PO BID [facility] Last Admin: 07/04/16 22:04 Dose: 1,200 mg Hydralazine HCl (Apresoline) 10 mg IVPUSH Q4H PRN PRN Reason: Hypertension Last Admin: 07/05/16 04:34 Dose: 10 mg Hydromorphone HCl (Dilaudid) 0.25 mg IVPUSH Q2H PRN PRN Reason: Pain (severe 7-10) Promethazine HCl 12.5 mg/ (Sodium Chloride) 50.5 mls @ 100 mls/hr IV Q6H PRN PRN Reason: Nausea/Vomiting Azithromycin 500 mg/ Sodium (Chloride) 250 mls @ 250 mls/hr IV Q24H [facility] Last Admin: 07/04/16 09:40 Dose: 250 mls/hr Lisinopril (Prinivil) 10 mg PO DAILY [facility] Last Admin: 07/04/16 09:39 Dose: 10 mg Lorazepam (Ativan) 0.25 mg IV Q6H PRN PRN Reason: Anxiety Last Admin: 07/05/16 05:55 Dose: 0.25 mg Magnesium Sulfate (Pharmacy To Dose - Magnesium Replacement) 0 dose .XX ASDIRECTED PRN PRN Reason: RX TO MONITOR MAG LEVELS Metoprolol Tartrate (Lopressor) 5 mg IVPUSH Q4H PRN PRN Reason: Tachycardia Multivitamins (Thera) 1 each PO BEDTIME [facility] Last Admin: 07/04/16 22:04 Dose: 1 each Ondansetron HCl (Zofran) 4 mg IV Q6H PRN PRN Reason: Nausea/Vomiting Polyethylene Glycol (Miralax) 17 gm PO DAILY PRN PRN Reason: Constipation Potassium Chloride (Pharmacy To Dose - Potassium Replacement) 0 dose .XX ASDIRECTED PRN PRN Reason: RX TO MONITOR K LEVELS Senna/Docusate Sodium (Senna Plus) 1 tab PO BID PRN PRN Reason: Constipation Simvastatin (Zocor) 20 mg PO DAILY [facility] Last Admin: 07/04/16 09:39 Dose: 20 mg Sodium Chloride (Saline Flush) 10 ml FLUSH ASDIRECTED PRN PRN Reason: Keep Vein Open Temazepam (Restoril) 7.5 mg PO BEDTIME PRN PRN Reason: Sleep Thiamine HCl (Vitamin B-1) 100 mg PO BEDTIME [facility] Last Admin: 07/04/16 22:04 Dose: 100 mg Discontinued Medications Acetaminophen (Tylenol) 650 mg PO NOW ONE Stop: 07/02/16 20:43 Last Admin: 07/02/16 21:06 Dose: 650 mg Bumetanide (Bumex) 1 mg IVPUSH ONETIME ONE Stop: 07/02/16 12:30 Last Admin: 07/02/16 13:36 Dose: 1 mg Diphtheria/Tetanus/Acell Pertussis (Boostrix) 0.5 ml IM .ONCE ONE Stop: 07/03/16 09:19 Sodium Chloride (Normal Saline) 1,000 mls @ 75 mls/hr IV ASDIRECTED [facility] Last Admin: 07/02/16 13:28 Dose: 75 mls/hr Magnesium Oxide (Magnesium Oxide) 400 mg PO ONETIME ONE Stop: 07/03/16 08:31 Last Admin: 07/03/16 08:19 Dose: 400 mg Magnesium Oxide (Magnesium Oxide) 800 mg PO ONETIME ONE Stop: 07/04/16 09:01 Last Admin: 07/04/16 09:39 Dose: 800 mg Alendronate Sodium (70 Mg) 0 each PO Mo@0600 [facility] Pneumococcal 13-Valent Conj Vacc (Prevnar 13) 0.5 ml IM .ONCE ONE Stop: 07/03/16 09:19 Potassium Chloride (Klor-Con M20) 40 meq PO Q4H [facility] Stop: 07/03/16 12:31 Last Admin: 07/03/16 12:06 Dose: 40 meq - Exam General: alert, cooperative, no acute distress HEENT: Pupils equal, Pupils reactive, EOMI, Mucous membr. moist/pink Lungs: Normal respiratory effort, Decreased breath sounds, Rhonchi (mild), Other (sounds congested) Cardiovascular: Regular Rate, Regular Rhythm Abdomen: bowel sounds present, soft, no tenderness, no distension (Female) Exam: Deferred Back Exam: Normal Inspection, Decreased Range of Motion Extremities: no edema, normal pulses, no tenderness/swelling, no clubbing, no cyanosis, no calf tenderness Peripheral Pulses: 2+: Dorsalis Pedis (L), Dorsalis Pedis (R) Skin: warm, dry, intact Neurological: no new focal deficit Psy/Mental Status: alert, normal affect, normal mood - Problem List Review Problem List Initiated/Reviewed/Updated: Yes - My Orders Last 24 Hours: My Active Orders 07/05/16 06:03 CBC WITH AUTO DIFF [HEME] AM 07/06/16 05:11 BASIC METABOLIC PANEL,BMP [CHEM] AM C-REACTIVE PROTEIN [CHEM] AM CBC WITH AUTO DIFF [HEME] AM MAGNESIUM [CHEM] AM 07/07/16 05:11 BASIC METABOLIC PANEL,BMP [CHEM] AM C-REACTIVE PROTEIN [CHEM] AM MAGNESIUM [CHEM] AM - Plan Plan:: Assessment/Plan: Acute: Febrile Illness-- Acute bronchitis - Likely 2/2 Bronchitis (Possible Viral)--coughing, fever, SOB x 2-3 days - CRP 3.4--> 4.5 - Mycoplasma, S. Pneumo and Resp Viral Panel: all negative - Zithromax for inflammatory coverage - Will send sputum sample for cx and sx - RT for IS/Flutter valve and nebs - Mucinex BID - PRN Tylenol for Fever Sore Throat, Better - Strep negative - Cepacol PRN for symptomatic control - Encourage to have a little more fluids or something to stimulate wetness in her mouth Generalized Weakness - 2/2 Above - TSH and FTR normal - Vit D level WNL - Chronic MS with acute resp illness contributory HTN - Not controlled - She is on lasix 20 po daily and lisinopril 10 mg po daily - D/c PRN hydralazine due to intolerance - Will add norvasc 10 mg po qhs and increased lisinopril to 20 mg po daily Medical Non-compliant - She is refusing breathing treatments and some oral pills Resolved: S/p Hypoxemia - 88% on RA presentation to ED - Supplemental O2 - Likely 2/2 Bronchitis - Expect to get better with improving cough Chronic: HTN- stable; cont home meds HLD PUD- GI prophylax Urinary Incontinence MS Plan: She is otherwise clinically stable Routine AM Labs Continue current treatment DVT/GI prophylax Continue PT/OT/RT Encourage to use [facility] as directed SW/CM for d/c planning Code status: DNR/DNI LOS anticipate > 96 hrs due to slow response to treatment and for possible SNF/ Rehab Placement vs [facility]
[2016-07-05] MEDS: Albuterol/Ipratropium 3.0-0.5 MG/3 ML Neb Soln NEB SCH ×4 (08:20→20:20)
[2016-07-05] MEDS: Simvastatin 20 MG Tab PO SCH (10:25)
[2016-07-05] MEDS: Furosemide 20 MG Tab PO SCH (10:25)
[2016-07-05] MEDS: guaiFENesin 600 MG Tab.ER PO SCH ×2 (10:25→20:56)
[2016-07-05] MEDS: Lisinopril 10 MG Tab PO SCH (10:25)
[2016-07-05] MEDS: Azithromycin 500 MG in Sodium Chloride 0.9% 250 ML IV SCH (10:29)
--- NOTE | 2016-07-05 10:30 | CR ---
Chest: Portable view of the chest was obtained. Comparison: Previous chest x-ray of 07/02/16. Heart size is accentuated from portable technique. Tortuous thoracic aorta is seen. Central lung markings are mildly increased. These findings are felt to be stable from prior exam. Minimal lobulation the right hemidiaphragm is seen which is stable. Slight scoliosis and degenerative change is seen within the spine. Impression: 1. Findings as noted above appearing stable from prior chest x-ray. 2. Nothing acute is appreciated on portable chest x-ray. Diagnostic code #2
[2016-07-05] MEDS: Multivitamins,Therapeutic Tab PO SCH (20:56)
[2016-07-05] MEDS: Thiamine 100 MG Tab PO SCH (20:56)
[2016-07-05] MEDS ORDERED: amLODIPine 10 MG Tab PO SCH ×2 (21:00)
[2016-07-06] MEDS: Albuterol/Ipratropium 3.0-0.5 MG/3 ML Neb Soln NEB SCH ×4 (06:36→20:44)
[2016-07-06] MEDS: Azithromycin 500 MG in Sodium Chloride 0.9% 250 ML IV SCH (07:58)
[2016-07-06] MEDS: Furosemide 20 MG Tab PO SCH (08:03)
[2016-07-06] MEDS: guaiFENesin 600 MG Tab.ER PO SCH ×2 (08:03→21:14)
[2016-07-06] MEDS: Lisinopril 10 MG Tab PO SCH (08:03)
[2016-07-06] MEDS: Simvastatin 20 MG Tab PO SCH (08:03)
--- NOTE | 2016-07-06 10:35 | PCM.PN ---
- General Info Date of Service: 07/06/16 Functional Status: Reports: tolerating diet, urinating - Review of Systems General: Reports: Weakness HEENT: Reports: no symptoms Pulmonary: Reports: no symptoms Cardiovascular: Reports: No Symptoms Gastrointestinal: Reports: No symptoms Genitourinary: Reports: no symptoms Musculoskeletal: Reports: no symptoms Skin: Reports: no symptoms Neurological: Reports: Difficulty Walking Psychiatric: Reports: no symptoms - Patient Data Vitals - most recent: Last Vital Signs Temp 36.8 C 07/06/16 07:57 Pulse 94 07/06/16 07:57 Resp 20 07/06/16 07:57 BP 129/71 07/06/16 08:03 Pulse Ox 98 07/06/16 09:18 Weight - most recent: 72.938 kg I&O - last 24 hours: Intake & Output 07/05/16 07/06/16 07/06/16 22:59 06:59 14:59 Intake Total 1410 400 Output Total 450 Balance 1410 -50 Lab Results last 24 hrs: Laboratory Results - last 24 hr 07/06/16 07/06/16 Range/Units 06:10 06:10 WBC 4.93 (3.98-10.04) K/mm3 RBC 4.31 (3.98-5.22) M/mm3 Hgb 12.9 (11.2-15.7) gm/L Hct 39.5 (34.1-44.9) % MCV 91.6 (79.4-94.8) fl MCH 29.9 (25.6-32.2) pg MCHC 32.7 (32.2-35.5) g/dl RDW Std Deviation 47.8 H (36.4-46.3) fL Plt Count 162 L (182-369) K/mm3 MPV 11.5 (9.4-12.3) fl Neut % (Auto) 47.1 (34.0-71.1) % Lymph % (Auto) 38.9 (19.3-51.7) % [place] % (Auto) 10.8 (4.7-12.5) % Eos % (Auto) 2.4 (0.7-5.8) Baso % (Auto) 0.6 (0.1-1.2) % Neut # (Auto) 2.32 (1.56-6.13) K/mm3 Lymph # (Auto) 1.92 (1.18-3.74) K/mm3 [place] # (Auto) 0.53 H (0.24-0.36) K/mm3 Eos # (Auto) 0.12 (0.04-0.36) K/mm3 Baso # (Auto) 0.03 (0.01-0.08) K/mm3 Manual Slide Review Normal smear Sodium 142 (136-145) mEq/L Potassium 4.1 (3.5-5.1) mEq/L Chloride 109 H (98-107) mEq/L Carbon Dioxide 25 (21-32) mEq/L Anion Gap 12.1 (5-15) BUN 24 H (7-18) mg/dL Creatinine 1.0 (0.55-1.02) mg/dL Est Cr Clr Drug Dosing 34.87 mL/min Estimated GFR (MDRD) 53 (>60) mL/min BUN/Creatinine Ratio 24.0 H (14-18) Glucose 122 H (83-115) mg/dL Calcium 8.2 L (8.5-10.1) mg/dL Magnesium 1.9 (1.8-2.4) mg/dl C-Reactive Protein 2.2 H* (<1.0) mg/dL Dexter Results last 24 hrs: Microbiology 07/05/16 08:00 Gram Stain - Final Sputum - Expectorated Med Orders - Current: Current Medications Acetaminophen (Tylenol) 650 mg PO Q4H PRN PRN Reason: Pain (Mild 1-3)/fever Last Admin: 07/02/16 17:43 Dose: 650 mg Hydrocodone Bitart/Acetaminophen ([place] 325-5 Mg) 1 tab PO Q4H PRN PRN Reason: Pain (moderate 4-6) Albuterol (Proventil Neb Soln) 2.5 mg NEB Q2H PRN PRN Reason: Shortness Of Breath/wheezing Albuterol/Ipratropium (Duoneb 3.0-0.5 Mg/3 Ml) 3 ml NEB QIDRT [facility] Last Admin: 07/06/16 09:18 Dose: 3 ml Amlodipine Besylate (Norvasc) 5 mg PO BEDTIME [facility] Last Admin: 07/05/16 20:57 Dose: 5 mg Bisacodyl (Dulcolax) 5 mg PO DAILY PRN PRN Reason: Constipation Docusate Sodium (Colace) 100 mg PO BID PRN PRN Reason: Constipation Furosemide (Lasix) 20 mg PO DAILY [facility] [place] Last Admin: 07/06/16 08:03 Dose: 20 mg Guaifenesin (Mucinex) 1,200 mg PO BID [facility] [place] Last Admin: 07/06/16 08:03 Dose: 1,200 mg Hydromorphone HCl (Dilaudid) 0.25 mg IVPUSH Q2H PRN PRN Reason: Pain (severe 7-10) Promethazine HCl 12.5 mg/ (Sodium Chloride) 50.5 mls @ 100 mls/hr IV Q6H PRN PRN Reason: Nausea/Vomiting Azithromycin 500 mg/ Sodium (Chloride) 250 mls @ 250 mls/hr IV Q24H [facility] [place] Last Admin: 07/06/16 07:58 Dose: 250 mls/hr Lisinopril (Prinivil) 20 mg PO DAILY [facility] Last Admin: 07/06/16 08:03 Dose: 20 mg Lorazepam (Ativan) 0.25 mg IV Q6H PRN PRN Reason: Anxiety Last Admin: 07/05/16 05:55 Dose: 0.25 mg Magnesium Sulfate (Pharmacy To Dose - Magnesium Replacement) 0 dose .XX ASDIRECTED PRN PRN Reason: RX TO MONITOR MAG LEVELS Metoprolol Tartrate (Lopressor) 5 mg IVPUSH Q4H PRN PRN Reason: Tachycardia Multivitamins (Thera) 1 each PO BEDTIME [facility] [place] Last Admin: 07/05/16 20:56 Dose: 1 each Ondansetron HCl (Zofran) 4 mg IV Q6H PRN PRN Reason: Nausea/Vomiting Polyethylene Glycol (Miralax) 17 gm PO DAILY PRN PRN Reason: Constipation Potassium Chloride (Pharmacy To Dose - Potassium Replacement) 0 dose .XX ASDIRECTED PRN PRN Reason: RX TO MONITOR K LEVELS Senna/Docusate Sodium (Senna Plus) 1 tab PO BID PRN PRN Reason: Constipation Simvastatin (Zocor) 20 mg PO DAILY [facility] [place] Last Admin: 07/06/16 08:03 Dose: 20 mg Sodium Chloride (Saline Flush) 10 ml FLUSH ASDIRECTED PRN PRN Reason: Keep Vein Open Temazepam (Restoril) 7.5 mg PO BEDTIME PRN PRN Reason: Sleep Thiamine HCl (Vitamin B-1) 100 mg PO BEDTIME [facility] [place] Last Admin: 07/05/16 20:56 Dose: 100 mg Discontinued Medications Acetaminophen (Tylenol) 650 mg PO NOW ONE Stop: 07/02/16 20:43 Last Admin: 07/02/16 21:06 Dose: 650 mg Albuterol/Ipratropium (Duoneb 3.0-0.5 Mg/3 Ml) 3 ml NEB Q6HRRT [facility] [place] Last Admin: 07/05/16 08:20 Dose: 3 ml Amlodipine Besylate (Norvasc) 10 mg PO BEDTIME [facility] [place] Bumetanide (Bumex) 1 mg IVPUSH ONETIME ONE Stop: 07/02/16 12:30 Last Admin: 07/02/16 13:36 Dose: 1 mg Diphtheria/Tetanus/Acell Pertussis (Boostrix) 0.5 ml IM .ONCE ONE Stop: 07/03/16 09:19 Hydralazine HCl (Apresoline) 10 mg IVPUSH Q4H PRN PRN Reason: Hypertension Last Admin: 07/05/16 04:34 Dose: 10 mg Sodium Chloride (Normal Saline) 1,000 mls @ 75 mls/hr IV ASDIRECTED [facility] [place] Last Admin: 07/02/16 13:28 Dose: 75 mls/hr Lisinopril (Prinivil) 10 mg PO DAILY [facility] [place] Last Admin: 07/04/16 09:39 Dose: 10 mg Magnesium Oxide (Magnesium Oxide) 400 mg PO ONETIME ONE Stop: 07/03/16 08:31 Last Admin: 07/03/16 08:19 Dose: 400 mg Magnesium Oxide (Magnesium Oxide) 800 mg PO ONETIME ONE Stop: 07/04/16 09:01 Last Admin: 07/04/16 09:39 Dose: 800 mg Alendronate Sodium (70 Mg) 0 each PO Mo@0600 [facility] [place] Pneumococcal 13-Valent Conj Vacc (Prevnar 13) 0.5 ml IM .ONCE ONE Stop: 07/03/16 09:19 Potassium Chloride (Klor-Con M20) 40 meq PO Q4H [facility] Stop: 07/03/16 12:31 Last Admin: 07/03/16 12:06 Dose: 40 meq - Exam Quality Assessment: supplemental oxygen, DVT prophylaxis General: alert, oriented, no acute distress HEENT: Pupils equal, Pupils reactive, EOMI Neck: supple, trachea midline Lungs: Normal respiratory effort, Decreased breath sounds Cardiovascular: Regular Rate, Regular Rhythm Abdomen: bowel sounds present, soft, no tenderness, no distension (Female) Exam: Deferred Back Exam: Normal Inspection Extremities: normal pulses Skin: warm Neurological: no new focal deficit Psy/Mental Status: alert - Problem List & Annotations (1) Acute bronchitis SNOMED Code(s): 21750344 Code(s): J20.9 - ACUTE BRONCHITIS, UNSPECIFIED Status: Acute Priority: High Current Visit: Yes Qualifiers: Bronchitis organism: unspecified organism Qualified Code(s): J20.9 - Acute bronchitis, unspecified (2) Febrile illness SNOMED Code(s): 075319300 Code(s): R50.9 - FEVER, UNSPECIFIED Status: Acute Current Visit: Yes (3) Generalized weakness SNOMED Code(s): 51619984 Code(s): R53.1 - WEAKNESS Status: Acute Priority: High Current Visit: Yes (4) Cervical radiculopathy SNOMED Code(s): 29856603 Code(s): M54.12 - RADICULOPATHY, CERVICAL REGION Status: Acute Current Visit: No (5) Multiple sclerosis SNOMED Code(s): 84932568 Code(s): G35 - MULTIPLE SCLEROSIS Status: Chronic Priority: Medium Current Visit: No - Problem List Review Problem List Initiated/Reviewed/Updated: Yes - Plan Plan:: Assessment/Plan: Acute: Febrile Illness-- Acute bronchitis - Likely 2/2 Bronchitis (Possible Viral)--coughing, fever, SOB x 2-3 days - CRP 3.4--> 4.5 - Mycoplasma, S. Pneumo and Resp Viral Panel: all negative - Zithromax for inflammatory coverage - Will send sputum sample for cx and sx - RT for IS/Flutter valve and nebs - Mucinex BID - PRN Tylenol for Fever Sore Throat, Better - Strep negative - Cepacol PRN for symptomatic control - Encourage to have a little more fluids or something to stimulate wetness in her mouth Generalized Weakness - 2/2 Above - TSH and FTR normal - Vit D level WNL - Chronic MS with acute resp illness contributory HTN - Not controlled - She is on lasix 20 po daily and lisinopril 10 mg po daily - D/c PRN hydralazine due to intolerance - Will add norvasc 10 mg po qhs and increased lisinopril to 20 mg po daily Medical Non-compliant - She is refusing breathing treatments and some oral pills Resolved: S/p Hypoxemia - 88% on RA presentation to ED - Supplemental O2 - Likely 2/2 Bronchitis - Expect to get better with improving cough Chronic: HTN- stable; cont home meds HLD PUD- GI prophylax Urinary Incontinence MS Plan: She is otherwise clinically stable Routine AM Labs Continue current treatment DVT/GI prophylax Continue PT/OT/RT Encourage to use [facility] as directed SW/CM for d/c planning Code status: DNR/DNI LOS > 96 hrs due to slow response to treatment and for possible SNF/Rehab Placement vs [facility]
[2016-07-06] MEDS ORDERED: Magnesium Sulfate/Water 2 GM in Premix Bag 1 BAG IV ONE (11:33)
[2016-07-06] MEDS: Thiamine 100 MG Tab PO SCH (21:11)
[2016-07-06] MEDS: amLODIPine 5 MG Tab PO SCH (21:12)
[2016-07-06] MEDS: Multivitamins,Therapeutic Tab PO SCH (21:12)
[2016-07-07] MEDS ORDERED: Alendronate Sodium 70 MG PO SCH (06:00)
[2016-07-07] MEDS: Albuterol/Ipratropium 3.0-0.5 MG/3 ML Neb Soln NEB SCH ×4 (06:18→20:33)
[2016-07-07] MEDS: Azithromycin 500 MG in Sodium Chloride 0.9% 250 ML IV SCH (06:39)
[2016-07-07] MEDS: guaiFENesin 600 MG Tab.ER PO SCH ×2 (09:09→20:52)
[2016-07-07] MEDS: Furosemide 20 MG Tab PO SCH (09:09)
[2016-07-07] MEDS: Simvastatin 20 MG Tab PO SCH (09:09)
[2016-07-07] MEDS: Lisinopril 10 MG Tab PO SCH (09:10)
--- NOTE | 2016-07-07 12:25 | PCM.PN ---
- General Info Date of Service: 07/07/16 Functional Status: Reports: pain controlled, tolerating diet, ambulating, urinating - Review of Systems General: Reports: No Symptoms HEENT: Reports: no symptoms Pulmonary: Reports: cough, sputum Cardiovascular: Reports: No Symptoms Gastrointestinal: Reports: No symptoms Genitourinary: Reports: no symptoms Musculoskeletal: Reports: no symptoms Skin: Reports: no symptoms Neurological: Reports: Difficulty Walking, Weakness Psychiatric: Reports: no symptoms - Patient Data Vitals - most recent: Last Vital Signs Temp 37.0 C 07/07/16 09:02 Pulse 95 07/07/16 09:02 Resp 20 07/07/16 09:02 BP 114/83 07/07/16 09:10 Pulse Ox 97 07/07/16 09:15 Weight - most recent: 73.663 kg I&O - last 24 hours: Intake & Output 07/06/16 07/07/16 07/07/16 22:59 06:59 14:59 Intake Total 1700 700 330 Output Total 850 600 Balance 850 100 330 Lab Results last 24 hrs: Laboratory Results - last 24 hr 07/07/16 Range/Units 06:18 Sodium 145 (136-145) mEq/L Potassium 4.4 (3.5-5.1) mEq/L Chloride 111 H (98-107) mEq/L Carbon Dioxide 25 (21-32) mEq/L Anion Gap 13.4 (5-15) BUN 26 H (7-18) mg/dL Creatinine 0.9 (0.55-1.02) mg/dL Est Cr Clr Drug Dosing 38.75 mL/min Estimated GFR (MDRD) 59 (>60) mL/min BUN/Creatinine Ratio 28.9 H (14-18) Glucose 106 (83-115) mg/dL Calcium 8.4 L (8.5-10.1) mg/dL Magnesium 2.1 (1.8-2.4) mg/dl C-Reactive Protein 1.4 H* (<1.0) mg/dL Dexter Results last 24 hrs: Microbiology 07/05/16 08:00 Gram Stain - Final Sputum - Expectorated Sputum Culture - Preliminary Med Orders - Current: Current Medications Acetaminophen (Tylenol) 650 mg PO Q4H PRN PRN Reason: Pain (Mild 1-3)/fever Last Admin: 07/02/16 17:43 Dose: 650 mg Hydrocodone Bitart/Acetaminophen ([place] 325-5 Mg) 1 tab PO Q4H PRN PRN Reason: Pain (moderate 4-6) Albuterol (Proventil Neb Soln) 2.5 mg NEB Q2H PRN PRN Reason: Shortness Of Breath/wheezing Albuterol/Ipratropium (Duoneb 3.0-0.5 Mg/3 Ml) 3 ml NEB QIDRT [facility] Last Admin: 07/07/16 09:05 Dose: 3 ml Amlodipine Besylate (Norvasc) 5 mg PO BEDTIME [facility] Last Admin: 07/06/16 21:12 Dose: 5 mg Bisacodyl (Dulcolax) 5 mg PO DAILY PRN PRN Reason: Constipation Docusate Sodium (Colace) 100 mg PO BID PRN PRN Reason: Constipation Furosemide (Lasix) 20 mg PO DAILY [facility] Last Admin: 07/07/16 09:09 Dose: 20 mg Guaifenesin (Mucinex) 1,200 mg PO BID [facility] Last Admin: 07/07/16 09:09 Dose: 1,200 mg Hydromorphone HCl (Dilaudid) 0.25 mg IVPUSH Q2H PRN PRN Reason: Pain (severe 7-10) Promethazine HCl 12.5 mg/ (Sodium Chloride) 50.5 mls @ 100 mls/hr IV Q6H PRN PRN Reason: Nausea/Vomiting Azithromycin 500 mg/ Sodium (Chloride) 250 mls @ 250 mls/hr IV Q24H [facility] Last Admin: 07/07/16 06:39 Dose: 250 mls/hr Lisinopril (Prinivil) 20 mg PO DAILY [facility] Last Admin: 07/07/16 09:10 Dose: 20 mg Lorazepam (Ativan) 0.25 mg IV Q6H PRN PRN Reason: Anxiety Last Admin: 07/05/16 05:55 Dose: 0.25 mg Metoprolol Tartrate (Lopressor) 5 mg IVPUSH Q4H PRN PRN Reason: Tachycardia Multivitamins (Thera) 1 each PO BEDTIME [facility] Last Admin: 07/06/16 21:12 Dose: 1 each Ondansetron HCl (Zofran) 4 mg IV Q6H PRN PRN Reason: Nausea/Vomiting Polyethylene Glycol (Miralax) 17 gm PO DAILY PRN PRN Reason: Constipation Senna/Docusate Sodium (Senna Plus) 1 tab PO BID PRN PRN Reason: Constipation Simvastatin (Zocor) 20 mg PO DAILY [facility] Last Admin: 07/07/16 09:09 Dose: 20 mg Sodium Chloride (Saline Flush) 10 ml FLUSH ASDIRECTED PRN PRN Reason: Keep Vein Open Temazepam (Restoril) 7.5 mg PO BEDTIME PRN PRN Reason: Sleep Thiamine HCl (Vitamin B-1) 100 mg PO BEDTIME [facility] Last Admin: 07/06/16 21:11 Dose: 100 mg Discontinued Medications Acetaminophen (Tylenol) 650 mg PO NOW ONE Stop: 07/02/16 20:43 Last Admin: 07/02/16 21:06 Dose: 650 mg Albuterol/Ipratropium (Duoneb 3.0-0.5 Mg/3 Ml) 3 ml NEB Q6HRRT [facility] Last Admin: 07/05/16 08:20 Dose: 3 ml Amlodipine Besylate (Norvasc) 10 mg PO BEDTIME [facility] Amlodipine Besylate (Norvasc) 5 mg PO BEDTIME [facility] Last Admin: 07/05/16 20:57 Dose: 5 mg Bumetanide (Bumex) 1 mg IVPUSH ONETIME ONE Stop: 07/02/16 12:30 Last Admin: 07/02/16 13:36 Dose: 1 mg Diphtheria/Tetanus/Acell Pertussis (Boostrix) 0.5 ml IM .ONCE ONE Stop: 07/03/16 09:19 Hydralazine HCl (Apresoline) 10 mg IVPUSH Q4H PRN PRN Reason: Hypertension Last Admin: 07/05/16 04:34 Dose: 10 mg Sodium Chloride (Normal Saline) 1,000 mls @ 75 mls/hr IV ASDIRECTED [facility] Last Admin: 07/02/16 13:28 Dose: 75 mls/hr Magnesium Sulfate 2 gm/ Premix 50 mls @ 25 mls/hr IV ONETIME ONE Stop: 07/06/16 13:32 Last Admin: 07/06/16 11:59 Dose: 25 mls/hr Lisinopril (Prinivil) 10 mg PO DAILY [facility] Last Admin: 07/04/16 09:39 Dose: 10 mg Magnesium Oxide (Magnesium Oxide) 400 mg PO ONETIME ONE Stop: 07/03/16 08:31 Last Admin: 07/03/16 08:19 Dose: 400 mg Magnesium Oxide (Magnesium Oxide) 800 mg PO ONETIME ONE Stop: 07/04/16 09:01 Last Admin: 07/04/16 09:39 Dose: 800 mg Magnesium Sulfate (Pharmacy To Dose - Magnesium Replacement) 0 dose .XX ASDIRECTED PRN PRN Reason: RX TO MONITOR MAG LEVELS Alendronate Sodium (70 Mg) 0 each PO Mo@0600 [facility] Pneumococcal 13-Valent Conj Vacc (Prevnar 13) 0.5 ml IM .ONCE ONE Stop: 07/03/16 09:19 Potassium Chloride (Pharmacy To Dose - Potassium Replacement) 0 dose .XX ASDIRECTED PRN PRN Reason: RX TO MONITOR K LEVELS Potassium Chloride (Klor-Con M20) 40 meq PO Q4H [facility] Stop: 07/03/16 12:31 Last Admin: 07/03/16 12:06 Dose: 40 meq - Exam Quality Assessment: DVT prophylaxis General: alert, oriented, cooperative, no acute distress HEENT: Pupils equal, Pupils reactive, EOMI Neck: supple, trachea midline, no JVD Lungs: Normal respiratory effort Cardiovascular: Regular Rate, Regular Rhythm Abdomen: bowel sounds present, soft, no tenderness, no distension (Female) Exam: Deferred Back Exam: Normal Inspection Extremities: normal pulses Skin: warm Neurological: no new focal deficit Psy/Mental Status: alert - Problem List & Annotations (1) Acute bronchitis SNOMED Code(s): 96810154 Code(s): J20.9 - ACUTE BRONCHITIS, UNSPECIFIED Status: Acute Priority: High Current Visit: Yes Qualifiers: Bronchitis organism: unspecified organism Qualified Code(s): J20.9 - Acute bronchitis, unspecified (2) Febrile illness SNOMED Code(s): 071924813 Code(s): R50.9 - FEVER, UNSPECIFIED Status: Acute Current Visit: Yes (3) Generalized weakness SNOMED Code(s): 94768830 Code(s): R53.1 - WEAKNESS Status: Acute Priority: High Current Visit: Yes (4) Cervical radiculopathy SNOMED Code(s): 73624476 Code(s): M54.12 - RADICULOPATHY, CERVICAL REGION Status: Acute Current Visit: No (5) Multiple sclerosis SNOMED Code(s): 42507943 Code(s): G35 - MULTIPLE SCLEROSIS Status: Chronic Priority: Medium Current Visit: No - Problem List Review Problem List Initiated/Reviewed/Updated: Yes - Plan Plan:: Assessment/Plan: Acute: Febrile Illness-- Acute bronchitis - Likely 2/2 Bronchitis (Possible Viral)--coughing, fever, SOB x 2-3 days - CRP 3.4--> 4.5 - Mycoplasma, S. Pneumo and Resp Viral Panel: all negative - Zithromax for inflammatory coverage - Will send sputum sample for cx and sx - RT for IS/Flutter valve and nebs - Mucinex BID - PRN Tylenol for Fever Sore Throat, Better - Strep negative - Cepacol PRN for symptomatic control - Encourage to have a little more fluids or something to stimulate wetness in her mouth Generalized Weakness - 2/2 Above - TSH and FTR normal - Vit D level WNL - Chronic MS with acute resp illness contributory HTN - Not controlled - She is on lasix 20 po daily and lisinopril 10 mg po daily - D/c PRN hydralazine due to intolerance - Will add norvasc 10 mg po qhs and increased lisinopril to 20 mg po daily Medical Non-compliant - She is refusing breathing treatments and some oral pills Resolved: S/p Hypoxemia - 88% on RA presentation to ED - Supplemental O2 - Likely 2/2 Bronchitis - Expect to get better with improving cough Chronic: HTN- stable; cont home meds HLD PUD- GI prophylax Urinary Incontinence MS Plan: She is otherwise clinically stable Routine AM Labs Continue current treatment DVT/GI prophylax Continue PT/OT/RT Encourage to use [facility] as directed SW/CM for d/c planning Code status: DNR/DNI LOS > 96 hrs due to slow response to treatment and for possible SNF/Rehab Placement vs [facility]
[2016-07-07] MEDS: amLODIPine 5 MG Tab PO SCH (20:52)
[2016-07-07] MEDS: Multivitamins,Therapeutic Tab PO SCH (20:52)
[2016-07-07] MEDS: Thiamine 100 MG Tab PO SCH (20:52)
[2016-07-08] MEDS: Albuterol/Ipratropium 3.0-0.5 MG/3 ML Neb Soln NEB SCH ×2 (06:02→09:31)
[2016-07-08] MEDS: Azithromycin 500 MG in Sodium Chloride 0.9% 250 ML IV SCH (06:52)
[2016-07-08] MEDS: Lisinopril 10 MG Tab PO SCH (09:17)
[2016-07-08] MEDS: Furosemide 20 MG Tab PO SCH (09:17)
[2016-07-08 09:18] VITALS: BP 148/81
[2016-07-08] MEDS: Simvastatin 20 MG Tab PO SCH (09:18)
[2016-07-08] MEDS: guaiFENesin 600 MG Tab.ER PO SCH (09:42)
--- NOTE | 2016-07-08 12:07 | PCM.DCSUM1 ---
[id number] Text/Narrative:: See above for summary, agree as written. - Discharge Data Discharge Disposition: Home, W Home Health Agency 06 Condition: Good - Discharge Diagnosis/Problem(s) (1) Acute bronchitis SNOMED Code(s): 77939029 ICD Code: J20.9 - ACUTE BRONCHITIS, UNSPECIFIED Status: Acute Priority: High Qualifiers: Bronchitis organism: unspecified organism Qualified Code(s): J20.9 - Acute bronchitis, unspecified (2) Febrile illness SNOMED Code(s): 593678013 ICD Code: R50.9 - FEVER, UNSPECIFIED Status: Acute (3) Generalized weakness SNOMED Code(s): 38829163 ICD Code: R53.1 - WEAKNESS Status: Acute Priority: High (4) Cervical radiculopathy SNOMED Code(s): 36018478 ICD Code: M54.12 - RADICULOPATHY, CERVICAL REGION Status: Acute (5) Multiple sclerosis SNOMED Code(s): 06568883 ICD Code: G35 - MULTIPLE SCLEROSIS Status: Chronic Priority: Medium - Patient Summary/Data Consults: Consultations 07/02/16 11:57 Consult to Case Management [CONS] Routine Consult to Contact Lens Flashing Puncher [CONS] Routine Consult to Spiritual Care [CONS] Routine OT Evaluation and Treatment [CONS] Routine PT Evaluation and Treatment [CONS] Routine - Discharge Plan Prescriptions/Med Rec: Thiamine [Vitamin B-1] 100 mg PO BEDTIME #30 tablet amLODIPine [Norvasc] 5 mg PO BEDTIME #30 tablet Home Medications: Home Meds Alendronate Sodium [Alendronate] 70 mg PO WEEKLY 07/02/16 [History] Furosemide [Lasix] 20 mg PO DAILY 07/02/16 [History] Lisinopril 10 mg PO DAILY 07/02/16 [History] Simvastatin [Zocor] 20 mg PO DAILY 07/02/16 [History] Thiamine [Vitamin B-1] 100 mg PO BEDTIME #30 tablet 07/08/16 [Rx] amLODIPine [Norvasc] 5 mg PO BEDTIME #30 tablet 07/08/16 [Rx] Patient Handouts: Viral Respiratory Infection, Oevs-Yo-Phce, Acute Bronchitis, [id number], How to Use a Wheelchair, Multiple Sclerosis Referrals: Marybeth Medina MD [Primary Care Provider] - (Please see Dr. Medina on Thursday at 9:00 AM 07/15/16.) - Patient Data Vitals - Most Recent: Last Vital Signs Temp 37.0 C 07/08/16 09:13 Pulse 92 07/08/16 09:13 Resp 12 07/08/16 09:13 BP 148/81 H 07/08/16 09:13 Pulse Ox 95 07/08/16 09:31 I&O - Last 24 hours: Intake & Output 07/08/16 07/09/16 07/09/16 22:59 06:59 14:59 Intake Total 120 Balance 120 Med Orders - Current: Current Medications Discontinued Medications Acetaminophen (Tylenol) 650 mg PO Q4H PRN PRN Reason: Pain (Mild 1-3)/fever Last Admin: 07/02/16 17:43 Dose: 650 mg Acetaminophen (Tylenol) 650 mg PO NOW ONE Stop: 07/02/16 20:43 Last Admin: 07/02/16 21:06 Dose: 650 mg Hydrocodone Bitart/Acetaminophen ([place] 325-5 Mg) 1 tab PO Q4H PRN PRN Reason: Pain (moderate 4-6) Albuterol (Proventil Neb Soln) 2.5 mg NEB Q2H PRN PRN Reason: Shortness Of Breath/wheezing Albuterol/Ipratropium (Duoneb 3.0-0.5 Mg/3 Ml) 3 ml NEB Q6HRRT [facility] Last Admin: 07/05/16 08:20 Dose: 3 ml Albuterol/Ipratropium (Duoneb 3.0-0.5 Mg/3 Ml) 3 ml NEB QIDRT [facility] Last Admin: 07/08/16 09:31 Dose: 3 ml Amlodipine Besylate (Norvasc) 10 mg PO BEDTIME [place] Amlodipine Besylate (Norvasc) 5 mg PO BEDTIME [facility] Last Admin: 07/05/16 20:57 Dose: 5 mg Amlodipine Besylate (Norvasc) 5 mg PO BEDTIME [facility] Last Admin: 07/07/16 20:52 Dose: 5 mg Bisacodyl (Dulcolax) 5 mg PO DAILY PRN PRN Reason: Constipation Bumetanide (Bumex) 1 mg IVPUSH ONETIME ONE Stop: 07/02/16 12:30 Last Admin: 07/02/16 13:36 Dose: 1 mg Diphtheria/Tetanus/Acell Pertussis (Boostrix) 0.5 ml IM .ONCE ONE Stop: 07/03/16 09:19 Last Admin: 07/08/16 13:12 Dose: 0.5 ml Docusate Sodium (Colace) 100 mg PO BID PRN PRN Reason: Constipation Furosemide (Lasix) 20 mg PO DAILY [facility] Last Admin: 07/08/16 09:17 Dose: 20 mg Guaifenesin (Mucinex) 1,200 mg PO BID [facility] Last Admin: 07/08/16 09:42 Dose: 1,200 mg Hydralazine HCl (Apresoline) 10 mg IVPUSH Q4H PRN PRN Reason: Hypertension Last Admin: 07/05/16 04:34 Dose: 10 mg Hydromorphone HCl (Dilaudid) 0.25 mg IVPUSH Q2H PRN PRN Reason: Pain (severe 7-10) Promethazine HCl 12.5 mg/ (Sodium Chloride) 50.5 mls @ 100 mls/hr IV Q6H PRN PRN Reason: Nausea/Vomiting Sodium Chloride (Normal Saline) 1,000 mls @ 75 mls/hr IV ASDIRECTED [facility] Last Admin: 07/02/16 13:28 Dose: 75 mls/hr Azithromycin 500 mg/ Sodium (Chloride) 250 mls @ 250 mls/hr IV Q24H [facility] Last Admin: 07/08/16 06:52 Dose: 250 mls/hr Magnesium Sulfate 2 gm/ Premix 50 mls @ 25 mls/hr IV ONETIME ONE Stop: 07/06/16 13:32 Last Admin: 07/06/16 11:59 Dose: 25 mls/hr Lisinopril (Prinivil) 10 mg PO DAILY [facility] Last Admin: 07/04/16 09:39 Dose: 10 mg Lisinopril (Prinivil) 20 mg PO DAILY [facility] Last Admin: 07/08/16 09:17 Dose: 20 mg Lorazepam (Ativan) 0.25 mg IV Q6H PRN PRN Reason: Anxiety Last Admin: 07/05/16 05:55 Dose: 0.25 mg Magnesium Oxide (Magnesium Oxide) 400 mg PO ONETIME ONE Stop: 07/03/16 08:31 Last Admin: 07/03/16 08:19 Dose: 400 mg Magnesium Oxide (Magnesium Oxide) 800 mg PO ONETIME ONE Stop: 07/04/16 09:01 Last Admin: 07/04/16 09:39 Dose: 800 mg Magnesium Sulfate (Pharmacy To Dose - Magnesium Replacement) 0 dose .XX ASDIRECTED PRN PRN Reason: RX TO MONITOR MAG LEVELS Metoprolol Tartrate (Lopressor) 5 mg IVPUSH Q4H PRN PRN Reason: Tachycardia Multivitamins (Thera) 1 each PO BEDTIME [facility] Last Admin: 07/07/16 20:52 Dose: 1 each Ondansetron HCl (Zofran) 4 mg IV Q6H PRN PRN Reason: Nausea/Vomiting Alendronate Sodium (70 Mg) 0 each PO Mo@0600 [facility] Pneumococcal 13-Valent Conj Vacc (Prevnar 13) 0.5 ml IM .ONCE ONE Stop: 07/03/16 09:19 Polyethylene Glycol (Miralax) 17 gm PO DAILY PRN PRN Reason: Constipation Potassium Chloride (Pharmacy To Dose - Potassium Replacement) 0 dose .XX ASDIRECTED PRN PRN Reason: RX TO MONITOR K LEVELS Potassium Chloride (Klor-Con M20) 40 meq PO Q4H [facility] Stop: 07/03/16 12:31 Last Admin: 07/03/16 12:06 Dose: 40 meq Senna/Docusate Sodium (Senna Plus) 1 tab PO BID PRN PRN Reason: Constipation Simvastatin (Zocor) 20 mg PO DAILY [facility] Last Admin: 07/08/16 09:18 Dose: 20 mg Sodium Chloride (Saline Flush) 10 ml FLUSH ASDIRECTED PRN PRN Reason: Keep Vein Open Temazepam (Restoril) 7.5 mg PO BEDTIME PRN PRN Reason: Sleep Thiamine HCl (Vitamin B-1) 100 mg PO BEDTIME [facility] Last Admin: 07/07/16 20:52 Dose: 100 mg *Q Meaningful Use (DIS) - VTE *Q VTE Criteria *Q: - Stroke *Q Stroke Criteria *Q: - AMI *Q AMI Criteria *Q: <Asia Cantu M - Last Filed: 07/10/16 10:44> Discharge Summary - Hospital Course Free Text/Narrative:: This sis an 86 yo elderly white female with past medical hx/o HTN, HLD, PUD, Urinary Incontinence and MS (stable for many years) who comes in with complaints of generalized weakness associated with productive cough, fever and chills that started last Thursday. She reports reduced appetite and generalized muscle and joint aches and pain. This morning she had difficulty getting out of bed according to her son. On presentation to ED, she was found to have a temperature of 38.9 C. Her initial ED work up shows, a CBC remarkable for Hct 45.9, Platelet 125 and Neutrophils of 87%. Her D-Dimer is 0.88. Her chemistry is remarkable for BS 179 and BNP 164. Her LA is 1, Troponin x 1 is negative, Lipase is 75 and TSH is 0.482. Her UA is negative for UTI. Her CRX shows no acute abnormal findings. Her EKG shows NSR, Q wave in V1-V3 and ST depression in I, aVL. Her ABG shows PO2 of 52 with 88.8% O2 sat on RA. Patient being admitted for Generalized Weakness, Febrile Illness, Bronchitis and Hypoxemia. She is DNR/DNI. She was treated with zithromax, IVF initially, PT/OT. Fevers resolved. Labs were stable upon discharge. PT/OT recommend SNF vs HHC. Patient declines SNF at this time despite teams strong recommendation for rehab stay. She has assistance with her son at home. Face to face encounter prior to discharge home patient will benefit from HHC, PT /OT, nursing and DESIGN TECHNOLOGY PROFESSOR assistance for strength, balance training, bathing assistance, education re: disease processes- MS, bronchitis, generalized weakness, VS monitoring. Patient is home bound. She will follow up with her PCP , Dr. Medina within one week of discharge, who will assume HHC coverage after discharge. - Discharge Data Discharge Date: 07/08/16 (admit date 07/02/16) - Discharge Diagnosis/Problem(s) (1) Acute bronchitis SNOMED Code(s): 13867046 ICD Code: J20.9 - ACUTE BRONCHITIS, UNSPECIFIED Status: Acute Priority: High Qualifiers: Bronchitis organism: unspecified organism Qualified Code(s): J20.9 - Acute bronchitis, unspecified (2) Febrile illness SNOMED Code(s): 131193015 ICD Code: R50.9 - FEVER, UNSPECIFIED Status: Acute (3) Generalized weakness SNOMED Code(s): 92236998 ICD Code: R53.1 - WEAKNESS Status: Acute Priority: High (4) Multiple sclerosis SNOMED Code(s): 74742239 ICD Code: G35 - MULTIPLE SCLEROSIS Status: Chronic Priority: Medium - Patient Summary/Data Operative Procedure(s) Performed: None Complications: None Consults: Consultations 07/02/16 11:57 Consult to Case Management [CONS] Routine Consult to Contact Lens Flashing Puncher [CONS] Routine Consult to Spiritual Care [CONS] Routine OT Evaluation and Treatment [CONS] Routine PT Evaluation and Treatment [CONS] Routine Labs Pending at D/C: None Recommended Follow-up Testing/Procedures: None Follow up with PCP, Dr. Medina within 7-10 days of discharge PT/OT- with Home Health Care to continue with Dr. Medina to follow after discharge. Planned Operative Procedure(s) after DC: None Hospital Course: As above - Patient Instructions Diet: Heart Healthy Diet, Drink 8-10+ Glasses/Day Activity: As Tolerated (compression socks daily) Driving: Do Not Drive Showering/Bathing: May Shower Notify Provider of: Fever, Increased Pain, Swelling and Redness (worsening of cough, wheezing or shortness of breath; weakness, falls) - Discharge Summary/Plan Comment DC Time >30 min.: Yes (40 min) - General Info Date of Service: 07/08/16 Admission Dx/Problem (Free Text: Fever, weakness, cough, SOB Gertrude Gallegos is seen this morning, talkative and in good spirits. Coughing is significantly improved. Strength is improved. She is doing well with PT/OT. She is excited for probable discharge today. SW and myself both discussed SNF rehab stay with her today but she declines, wishes to go home with [facility]. Functional Status: Reports: pain controlled, tolerating diet, ambulating, urinating. Denies: new symptoms - Review of Systems General: Reports: No Symptoms, Weakness (much improved) HEENT: Reports: no symptoms Pulmonary: Reports: cough (minimal/significantly improved). Denies: shortness of breath, pleuritic chest pain, sputum, hemoptysis, wheezing Cardiovascular: Reports: No Symptoms, Edema (chronic LE edema). Denies: Chest Pain, Palpitations, Dyspnea on Exertion Gastrointestinal: Reports: No symptoms Genitourinary: Reports: no symptoms Musculoskeletal: Reports: other (generalized weakness d/t MS--chronic) Skin: Reports: no symptoms Neurological: Reports: No Symptoms Psychiatric: Reports: no symptoms - Patient Data Vitals - Most Recent: Last Vital Signs Temp 98.6 F 07/08/16 09:13 Pulse 92 07/08/16 09:13 Resp 12 07/08/16 09:13 BP 148/81 H 07/08/16 09:13 Pulse Ox 95 07/08/16 09:31 Weight - Most Recent: 162 lb 14.4 oz I&O - Last 24 hours: Intake & Output 07/07/16 07/08/16 07/08/16 22:59 06:59 14:59 Intake Total 950 300 330 Balance 950 300 330 Lab Results - Last 24 hrs: Laboratory Results - last 24 hr 07/08/16 07/08/16 Range/Units 06:04 06:04 WBC 5.66 (3.98-10.04) K/mm3 RBC 4.28 (3.98-5.22) M/mm3 Hgb 12.5 (11.2-15.7) gm/L Hct 39.6 (34.1-44.9) % MCV 92.5 (79.4-94.8) fl MCH 29.2 (25.6-32.2) pg MCHC 31.6 L (32.2-35.5) g/dl RDW Std Deviation 48.3 H (36.4-46.3) fL Plt Count 176 L (182-369) K/mm3 MPV 11.1 (9.4-12.3) fl Neut % (Auto) 50.8 (34.0-71.1) % Lymph % (Auto) 35.5 (19.3-51.7) % Bonner % (Auto) 9.0 (4.7-12.5) % Eos % (Auto) 4.2 (0.7-5.8) Baso % (Auto) 0.5 (0.1-1.2) % Neut # (Auto) 2.87 (1.56-6.13) K/mm3 Lymph # (Auto) 2.01 (1.18-3.74) K/mm3 Bonner # (Auto) 0.51 H (0.24-0.36) K/mm3 Eos # (Auto) 0.24 (0.04-0.36) K/mm3 Baso # (Auto) 0.03 (0.01-0.08) K/mm3 Sodium 142 (136-145) mEq/L Potassium 4.4 (3.5-5.1) mEq/L Chloride 108 H (98-107) mEq/L Carbon Dioxide 26 (21-32) mEq/L Anion Gap 12.4 (5-15) BUN 20 H (7-18) mg/dL Creatinine 1.0 (0.55-1.02) mg/dL Est Cr Clr Drug Dosing 34.87 mL/min Estimated GFR (MDRD) 53 (>60) mL/min BUN/Creatinine Ratio 20.0 H (14-18) Glucose 104 (83-115) mg/dL Calcium 8.6 (8.5-10.1) mg/dL [facility] Results - Last 24 hrs: Microbiology 07/05/16 08:00 Gram Stain - Final Sputum - Expectorated Sputum Culture - Final NORMAL RESPIRATORY PEPITO 2 DAYS Med Orders - Current: Current Medications Acetaminophen (Tylenol) 650 mg PO Q4H PRN PRN Reason: Pain (Mild 1-3)/fever Last Admin: 07/02/16 17:43 Dose: 650 mg Hydrocodone Bitart/Acetaminophen ([place] 325-5 Mg) 1 tab PO Q4H PRN PRN Reason: Pain (moderate 4-6) Albuterol (Proventil Neb Soln) 2.5 mg NEB Q2H PRN PRN Reason: Shortness Of Breath/wheezing Albuterol/Ipratropium (Duoneb 3.0-0.5 Mg/3 Ml) 3 ml NEB QIDRT [facility] Last Admin: 07/08/16 09:31 Dose: 3 ml Amlodipine Besylate (Norvasc) 5 mg PO BEDTIME [facility] Last Admin: 07/07/16 20:52 Dose: 5 mg Bisacodyl (Dulcolax) 5 mg PO DAILY PRN PRN Reason: Constipation Docusate Sodium (Colace) 100 mg PO BID PRN PRN Reason: Constipation Furosemide (Lasix) 20 mg PO DAILY [facility] Last Admin: 07/08/16 09:17 Dose: 20 mg Guaifenesin (Mucinex) 1,200 mg PO BID [facility] Last Admin: 07/08/16 09:42 Dose: 1,200 mg Hydromorphone HCl (Dilaudid) 0.25 mg IVPUSH Q2H PRN PRN Reason: Pain (severe 7-10) Promethazine HCl 12.5 mg/ (Sodium Chloride) 50.5 mls @ 100 mls/hr IV Q6H PRN PRN Reason: Nausea/Vomiting Lisinopril (Prinivil) 20 mg PO DAILY [facility] Last Admin: 07/08/16 09:17 Dose: 20 mg Lorazepam (Ativan) 0.25 mg IV Q6H PRN PRN Reason: Anxiety Last Admin: 07/05/16 05:55 Dose: 0.25 mg Metoprolol Tartrate (Lopressor) 5 mg IVPUSH Q4H PRN PRN Reason: Tachycardia Multivitamins (Thera) 1 each PO BEDTIME [facility] Last Admin: 07/07/16 20:52 Dose: 1 each Ondansetron HCl (Zofran) 4 mg IV Q6H PRN PRN Reason: Nausea/Vomiting Polyethylene Glycol (Miralax) 17 gm PO DAILY PRN PRN Reason: Constipation Senna/Docusate Sodium (Senna Plus) 1 tab PO BID PRN PRN Reason: Constipation Simvastatin (Zocor) 20 mg PO DAILY [facility] Last Admin: 07/08/16 09:18 Dose: 20 mg Sodium Chloride (Saline Flush) 10 ml FLUSH ASDIRECTED PRN PRN Reason: Keep Vein Open Temazepam (Restoril) 7.5 mg PO BEDTIME PRN PRN Reason: Sleep Thiamine HCl (Vitamin B-1) 100 mg PO BEDTIME [facility] Last Admin: 07/07/16 20:52 Dose: 100 mg Discontinued Medications Acetaminophen (Tylenol) 650 mg PO NOW ONE Stop: 07/02/16 20:43 Last Admin: 07/02/16 21:06 Dose: 650 mg Albuterol/Ipratropium (Duoneb 3.0-0.5 Mg/3 Ml) 3 ml NEB Q6HRRT [facility] Last Admin: 07/05/16 08:20 Dose: 3 ml Amlodipine Besylate (Norvasc) 10 mg PO BEDTIME [facility] Amlodipine Besylate (Norvasc) 5 mg PO BEDTIME [facility] Last Admin: 07/05/16 20:57 Dose: 5 mg Bumetanide (Bumex) 1 mg IVPUSH ONETIME ONE Stop: 07/02/16 12:30 Last Admin: 07/02/16 13:36 Dose: 1 mg Diphtheria/Tetanus/Acell Pertussis (Boostrix) 0.5 ml IM .ONCE ONE Stop: 07/03/16 09:19 Hydralazine HCl (Apresoline) 10 mg IVPUSH Q4H PRN PRN Reason: Hypertension Last Admin: 07/05/16 04:34 Dose: 10 mg Sodium Chloride (Normal Saline) 1,000 mls @ 75 mls/hr IV ASDIRECTED [facility] Last Admin: 07/02/16 13:28 Dose: 75 mls/hr Azithromycin 500 mg/ Sodium (Chloride) 250 mls @ 250 mls/hr IV Q24H [facility] Last Admin: 07/08/16 06:52 Dose: 250 mls/hr Magnesium Sulfate 2 gm/ Premix 50 mls @ 25 mls/hr IV ONETIME ONE Stop: 07/06/16 13:32 Last Admin: 07/06/16 11:59 Dose: 25 mls/hr Lisinopril (Prinivil) 10 mg PO DAILY [facility] Last Admin: 07/04/16 09:39 Dose: 10 mg Magnesium Oxide (Magnesium Oxide) 400 mg PO ONETIME ONE Stop: 07/03/16 08:31 Last Admin: 07/03/16 08:19 Dose: 400 mg Magnesium Oxide (Magnesium Oxide) 800 mg PO ONETIME ONE Stop: 07/04/16 09:01 Last Admin: 07/04/16 09:39 Dose: 800 mg Magnesium Sulfate (Pharmacy To Dose - Magnesium Replacement) 0 dose .XX ASDIRECTED PRN PRN Reason: RX TO MONITOR MAG LEVELS Alendronate Sodium (70 Mg) 0 each PO Mo@0600 [facility] Pneumococcal 13-Valent Conj Vacc (Prevnar 13) 0.5 ml IM .ONCE ONE Stop: 07/03/16 09:19 Potassium Chloride (Pharmacy To Dose - Potassium Replacement) 0 dose .XX ASDIRECTED PRN PRN Reason: RX TO MONITOR K LEVELS Potassium Chloride (Klor-Con M20) 40 meq PO Q4H [facility] Stop: 07/03/16 12:31 Last Admin: 07/03/16 12:06 Dose: 40 meq - Exam Quality Assessment: Reports: DVT prophylaxis General: Reports: alert, oriented, cooperative, no acute distress (pleasant and talkative) HEENT: Reports: Pupils equal, Pupils reactive, EOMI, Mucous membr. moist/pink Neck: Reports: supple Lungs: Reports: Clear to auscultation, Normal respiratory effort, Decreased breath sounds (mid to lower lobes) Cardiovascular: Reports: Regular Rate, Regular Rhythm Abdomen: Reports: bowel sounds present, soft, no tenderness, no distension (Female) Exam: Deferred Rectal (Female) Exam: Deferred Extremities: Reports: edema (1+ bilat LE; teds bilat) Skin: Reports: warm, dry, intact Neurological: Reports: no new focal deficit Psy/Mental Status: Reports: alert, normal affect, normal mood *Q Meaningful Use (DIS) - VTE *Q VTE Criteria *Q: - Stroke *Q Stroke Criteria *Q: - AMI *Q AMI Criteria *Q:
== END 2016-07-08 14:19 | disposition home health service (06) | DRG 203 ==
LOC: JD.ED 07:19 → JD.ICU 10:48 → JD.MS 14:30
PROVIDERS: ADMIT Internal Medicine; ATTEND Internal Medicine
PROC: 3E0234Z Introduction of Serum, Toxoid and Vaccine into Muscle, Percutaneous Approach (ICD-10-PCS; principal; 2016-07-08)
DX: J20.9 Acute bronchitis, unspecified (principal); R50.9 Fever, unspecified; J44.9 Chronic obstructive pulmonary disease, unspecified; R09.02 Hypoxemia; E78.00 Pure hypercholesterolemia, unspecified; R53.1 Weakness; J02.9 Acute pharyngitis, unspecified; M54.12 Radiculopathy, cervical region; M25.50 Pain in unspecified joint; I10 Essential (primary) hypertension; E78.5 Hyperlipidemia, unspecified; K27.9 Peptic ulcer, site unspecified, unspecified as acute or chronic, without hemorrhage or perforation; R32 Unspecified urinary incontinence; G35 Multiple sclerosis; Z99.3 Dependence on wheelchair; Z66 Do not resuscitate; Z79.899 Other long term (current) drug therapy; Z91.19 Patient's noncompliance with other medical treatment and regimen; Z23 Encounter for immunization
CPT/HCPCS: 36415; 36600; 71010; 80053; 81001; 82306; 82803; 83605; 83690; 83880; 84443; 84484; 85025; 85379; 86140; 87040 ×2; 87081; 87430; 93005; 99285; P9612; 80048; 83735; 84439; 86738; 87070; 87205; 87486; 87581; 87633; 87798; 87899; 90471; 90715; 94640-76; 94664; 94667; 94668; 94760; 94761; 97110-GO; 97110-GP; 97162-GP; 97167-GO; 97530-GO; 97530-GP; 97535-GO; A9270-GY; J0360; J0456; J2060; J3475; J7040; J7050

== ENCOUNTER 2019-10-06 16:25 | Emergency (ER) | payer MEDICARE, BC ==
[2019-10-06] MEDS ORDERED: Sodium Chloride 0.9% 10 ML Syringe FLUSH PRN (16:45)
[2019-10-06] MEDS ORDERED: Aspirin 81 MG Tab.Chew PO ONE (17:15)
--- NOTE | 2019-10-06 17:15 | CR ---
Chest: 2 views of the chest were obtained. Comparison: Prior chest x-ray of 06/08/16. Heart size is stable. Tortuous thoracic aorta is seen. Slight lobulation of the right hemidiaphragm is seen which is chronic. Lungs show no acute parenchymal change. Bony structures shows scattered disc space narrowing and endplate spurring within the spine with kyphosis. Diaphragms are flattened on the lateral view raising the possibility of emphysematous change. Impression: 1. Questionable emphysematous change. 2. Other findings as noted above which are chronic. 3. Nothing acute is appreciated. Diagnostic code #2 This report was dictated in MDT
[2019-10-06] MEDS ORDERED: Aspirin 81 MG Tab.Chew ONE (17:24)
--- NOTE | 2019-10-06 18:34 | EDM.PDOC ---
ED HPI GENERAL MEDICAL PROBLEM - General Chief Complaint: Chest Pain Stated Complaint: CHEST PAIN Time Seen by Provider: 10/06/19 16:44 Source of Information: Reports: Patient History Limitations: Reports: No Limitations - History of Present Illness INITIAL COMMENTS - FREE TEXT/NARRATIVE: She has an 89-year-old female who presents to the emergency department with complaints of left shoulder pain that began last night. She states the pain radiates into her left upper back and sometimes into her left chest. 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 She discussed these symptoms with her son which were concerning for him, therefore he brought her to the emergency department for an evaluation as he thinks she may be having a heart attack. She does not have a history of [place], however does have a history of hypertension. She has a history of multiple sclerosis and has been in a wheelchair since 1991. She denies any shortness of breath or diaphoresis with this pain. Pain has improved since last night but is still present somewhat. She denies any recent fever, chills, nausea, vomiting, or diarrhea. - Related Data Allergies Allergy/AdvReac Type Severity Reaction Status Date / Time hydralazine AdvReac Tremors Verified 10/06/19 18:25 Home Meds: Home Meds Alendronate Sodium [Alendronate] 70 mg PO WEEKLY 07/02/16 [History] Furosemide [Lasix] 20 mg PO DAILY 07/02/16 [History] Lisinopril 10 mg PO DAILY 07/02/16 [History] Simvastatin [Zocor] 20 mg PO DAILY 07/02/16 [History] Thiamine [Vitamin B-1] 100 mg PO BEDTIME #30 tablet 07/08/16 [Rx] amLODIPine [Norvasc] 5 mg PO BEDTIME #30 tablet 07/08/16 [Rx] Past Medical History Cardiovascular History: Reports: High Cholesterol, Hypertension Gastrointestinal History: Reports: PUD Genitourinary History: Reports: Urinary Incontinence Musculoskeletal History: Reports: Other (See Below) Other Musculoskeletal History: MS Neurological History: Reports: MS - Infectious Disease History Infectious Disease History: Reports: None - Past Surgical History HEENT Surgical History: Reports: Cataract Surgery GI Surgical History: Reports: Appendectomy Social & Family History - Family History Family Medical History: Noncontributory - Tobacco Use Smoking Status *Q: Never Smoker Second Hand Smoke Exposure: No - Caffeine Use Caffeine Use: Reports: Tea Caffeine Use Comment: 6 oz of tea at noon - Living Situation & Occupation Living situation: Reports: , with Family (Son) Occupation: Retired ED ROS GENERAL - Review of Systems Review Of Systems: Comprehensive ROS is negative, except as noted in HPI. ED EXAM, GENERAL - Physical Exam Exam: See Below General Appearance: Alert, WD/WN, No Apparent Distress Respiratory/Chest: No Respiratory Distress, Lungs Clear, Normal Breath Sounds, No Accessory Muscle Use, Chest Non-Tender Cardiovascular: Normal Peripheral Pulses, Regular Rate, Rhythm, No Edema, No Gallop, No JVD, No Murmur, No Rub GI/Abdominal: Normal Bowel Sounds, Soft, Non-Tender, No Organomegaly, No Distention, No Abnormal Bruit, No Mass Extremities: Normal Inspection, Normal Range of Motion (Planes of some pain with movement left shoulder.), Non-Tender, No Pedal Edema, Normal Capillary Refill Neurological: Alert, Oriented, CN II-XII Intact, Normal Cognition, Normal Gait, Normal Reflexes, No Motor/Sensory Deficits Psychiatric: Normal Affect, Normal Mood Skin Exam: Warm, Dry, Intact, Normal Color, No Rash EKG INTERPRETATION EKG Date: 10/06/19 Time: 16:35 Rhythm: NSR Rate (Beats/Min): 73 [place]: LAD-Left [place] Deviation P-Wave: Present QRS: Normal ST-T: Normal QT: Normal EKG Interpretation Comments: LAFB pattern Q-waves in V1-V3 - old anteroseptal [place] Course - Vital Signs Last Recorded V/S: Last Vital Signs Temp 97.5 F 10/06/19 16:33 Pulse 75 10/06/19 18:49 Resp 19 10/06/19 18:49 BP 167/66 H 10/06/19 18:49 Pulse Ox 96 10/06/19 18:49 - Orders/Labs/Meds Orders: Active Orders 24 hr Category Date Time Status Peripheral IV Insertion Adult [OM.PC] Stat Oth 10/06/19 16:44 Ordered Labs: Laboratory Tests 10/06/19 10/06/19 Range/Units 16:46 16:46 WBC 7.15 (3.98-10.04) K/mm3 RBC 5.27 H (3.98-5.22) M/mm3 Hgb 15.9 H D (11.2-15.7) gm/dl Hct 48.9 H (34.1-44.9) % MCV 92.8 (79.4-94.8) fl MCH 30.2 (25.6-32.2) pg MCHC 32.5 (32.2-35.5) g/dl RDW Std Deviation 49.6 H (36.4-46.3) fL Plt Count 150 L (182-369) K/mm3 MPV 11.7 (9.4-12.3) fl Neut % (Auto) 44.6 (34.0-71.1) % Lymph % (Auto) 38.5 (19.3-51.7) % [place] % (Auto) 12.4 (4.7-12.5) % Eos % (Auto) 2.4 (0.7-5.8) Baso % (Auto) 2.0 H (0.1-1.2) % Neut # (Auto) 3.19 (1.56-6.13) K/mm3 Lymph # (Auto) 2.75 (1.18-3.74) K/mm3 [place] # (Auto) 0.89 H (0.24-0.36) K/mm3 Eos # (Auto) 0.17 (0.04-0.36) K/mm3 Baso # (Auto) 0.14 H (0.01-0.08) K/mm3 Manual Slide Review Normal smear Sodium 140 (136-145) mEq/L Potassium 4.0 (3.5-5.1) mEq/L Chloride 103 (98-107) mEq/L Carbon Dioxide 30 (21-32) mEq/L Anion Gap 11.0 (5-15) BUN 22 H (7-18) mg/dL Creatinine 0.8 (0.55-1.02) mg/dL Est Cr Clr Drug Dosing 41.17 mL/min Estimated GFR (MDRD) > 60 (>60) mL/min BUN/Creatinine Ratio 27.5 H (14-18) Glucose 92 (83-115) mg/dL Calcium 9.0 (8.5-10.1) mg/dL Total Bilirubin 0.3 (0.2-1.0) mg/dL AST 22 (15-37) U/L ALT 25 (14-59) U/L Alkaline Phosphatase 61 (46-116) U/L Troponin I < 0.017 (0.00-0.056) ng/mL Total Protein 7.7 (6.4-8.2) g/dl Albumin 3.9 (3.4-5.0) g/dl Globulin 3.8 gm/dL Albumin/Globulin Ratio 1.0 (1-2) Meds: Medications Discontinued Medications Generic Name Dose Route Start Last Admin Trade Name Darrell PRN Reason Stop Dose Admin Aspirin 324 mg 10/06/19 17:15 10/06/19 17:44 Aspirin PO 10/06/19 17:16 Not Given ONETIME ONE Aspirin Confirm 10/06/19 17:24 10/06/19 17:45 Aspirin Administered 10/06/19 17:25 Not Given Dose 81 mg .ROUTE .STK-MED ONE Sodium Chloride 10 ml 10/06/19 16:45 10/06/19 16:51 Saline Flush FLUSH 10 ml ASDIRECTED PRN Administration Keep Vein Open - Re-Assessments/Exams Free Text/Narrative Re-Assessment/Exam: Patient is an 89-year-old female who presents to the emergency department with complaints of left shoulder pain that began last night. Pain does sometimes radiate into her upper back and to a lesser degree her chest. She has a history of arthritis in her shoulders. She denies any shortness of breath or di aphoresis associated with this pain. I have ordered a CBC, CMP, CRP, troponin, chest x-ray, and EKG. 10/06/19 18:34 Patient's hematology was significant for hemoglobin of 15.9, BUN 22. Troponin was normal. Other lab values were also normal. EKG was negative for any acute abnormalities. Chest x-ray was found to be normal. Discussed findings with patient. Likely cause of her left shoulder pain is her chronic arthritis. Blood pressures have been minimally elevated in the 180s systolically over 60s diastolically. Patient is due to take her blood pressure medication this evening. Blood pressure not dangerously elevated, therefore we will not treat at this time. She does have a follow-up visit scheduled with her primary care next week. Recommended that she contact her tomorrow to discuss this evening's occurrences and see if she would like to see her prior to then. Discussed return precautions. Discharge instructions as documented. Departure - Departure Time of Disposition: 18:34 Disposition: Home, Self-Care 01 Condition: Good Clinical Impression: Shoulder pain, left Qualifiers: Chronicity: acute Qualified Code(s): M25.512 - Pain in left shoulder Instructions: Shoulder Pain Referrals: Naomy Roberson MD [Primary Care Provider] - Forms: ED Department Discharge Additional Instructions: You were seen in the emergency department this evening for left shoulder and left upper back pain with occasional radiation of pain to your chest that began last evening. Your work-up included blood work, an EKG of your heart, and a chest x-ray. The results of this work-up were found to be normal. You are not having a heart attack. Recommend that you treat the pain to your left shoulder with [id number] Tylenol. You may use a heating pad to the area as needed. I would recommend that you contact your primary care provider tomorrow morning to schedule a follow-up visit. Return to ER for any worsening symptoms of concern. Sepsis Event Note (ED) - Evaluation Sepsis Screening Result: No Definite Risk - Focused Exam Vital Signs: Vital Signs Temp Pulse Resp BP Pulse Ox 10/06/19 18:49 75 19 167/66 H 96 10/06/19 16:33 97.5 F 85 16 181/68 H 96 - My Orders Last 24 Hours: My Active Orders 10/06/19 16:44 Peripheral IV Insertion Adult [OM.PC] Stat - Assessment/Plan Last 24 Hours: My Active Orders 10/06/19 16:44 Peripheral IV Insertion Adult [OM.PC] Stat
[2019-10-06 19:01] VITALS: BP 167/66; PULSE 75
== END 2019-10-06 18:49 | disposition home or self-care (01) ==
LOC: JD.ED 16:25
DX: M25.512 Pain in left shoulder (principal); E78.00 Pure hypercholesterolemia, unspecified; I10 Essential (primary) hypertension; G35 Multiple sclerosis; Z88.8 Allergy status to other drugs, medicaments and biological substances; Z79.899 Other long term (current) drug therapy
CPT/HCPCS: 36415; 71046; 71046-26; 80053; 84484; 85025; 93005; 93010; 99283; 99284-25

== ENCOUNTER 2019-11-24 09:32 | Day surgery (SDC) | payer MEDICARE, BC ==
[~2019-11-24 09:32] MED LIST: Lactated Ringers 1,000 ML IV SCH; Lidocaine 1%/Sod Bicarbonate in NS 8.4% 1 ML Syringe IDERM PRN; Sodium Chloride 0.9% 10 ML Syringe FLUSH PRN; ceFAZolin 1 GM Vial ONE
[2019-11-24] MEDS ORDERED: Lidocaine 1% 30 ML SDV ONE (10:58)
[2019-11-24] MEDS ORDERED: Bupivacaine 0.25% 10 ML SDV ONE (10:58)
--- NOTE | 2019-11-24 12:44 | PCM.OPNOTE ---
- General Post-Op/Procedure Note Date of Surgery/Procedure: 11/24/19 Operative Procedure(s): right carpal tunnel release Pre Op Diagnosis: right median nerve compression neuropathy Post-Op Diagnosis: Same Anesthesia Technique: Local Primary Surgeon: Phi Bynum Switchboard And Control Room Operator: Nereyda Bragg in mLs: 5 Complications: None Condition: Good
[2019-11-24 12:52] VITALS: BP 163/80; PULSE 67
--- NOTE | 2019-12-01 10:37 | OR ---
DATE OF OPERATION: 11/24/2019 SURGEON: Phi Bynum MD OPERATION PERFORMED: Right carpal tunnel release. PREOPERATIVE DIAGNOSIS: Right median nerve compression neuropathy. POSTOPERATIVE DIAGNOSIS: Right median nerve compression neuropathy. ANESTHESIA: Local only. ANESTHESIA PROVIDER: ROOFING APPRENTICE: Nereyda Bragg PA-C ESTIMATED BLOOD LOSS: 5 mL. COMPLICATIONS: None. CONDITION: Stable. DESCRIPTION OF PROCEDURE: The patient was identified in the preop holding area. Proper site was marked and identified by the surgeon. The patient was taken back to the operating theater where after adequate anesthesia, the patient's right upper extremity was sterilely prepped and draped in the usual sterile fashion. OR time-out was performed. The patient did not receive antibiotics and it is not indicated for soft tissue hand procedure. At this time, the right upper extremity was exsanguinated and an Esmarch was used as a tourniquet on the forearm. At this time, using 1% lidocaine without epinephrine and 0.25% Marcaine without epinephrine, the palmar cutaneous branch of the median nerve was anesthetized and then the incisional site was anesthetized using Kaminski cardinal line and ulnar border of the fourth digit as reference. Once this had set up, an incision was made. Blunt dissection was taken down to the palmar cutaneous fascia. Palmar cutaneous fascia was incised with a Lime blade. At this time, the transverse carpal ligament was identified. A small rent was made in the transverse carpal ligament with a Lime blade under direct visualization. Resection of the transverse carpal ligament was done distally using tenotomy scissors making sure to stop short of the palmar arch. At this time, attention was turned proximally after it was found to be adequately released. Using the tenotomy scissors keeping the tips ulnar to protect the palmar cutaneous branch of the median nerve, the superficial forearm fascia as well as the transverse carpal ligament were resected proximally. It was found to be adequate release both proximally and distally. At this time, adequate saline was irrigated through the wound. 4-0 nylon sutures were used closure of the skin. The patient was placed in a sterile soft dressing and sent to PACU in stable condition. MMODAL /[id number]
== END 2019-11-24 12:35 | disposition home or self-care (01) ==
LOC: MERGE 09:32 → JD.SDS 09:32
PROVIDERS: ATTEND Orthopaedic Surgery
DX: G56.11 Other lesions of median nerve, right upper limb (principal); G56.01 Carpal tunnel syndrome, right upper limb; Z79.899 Other long term (current) drug therapy; Z79.82 Long term (current) use of aspirin
CPT/HCPCS: 64721; 87641; J0690; J2001; J3490; U0002